=== PATIENT | female | born 1970 | race Caucasian/White ===

== ENCOUNTER 2016-04-02 13:49 | Emergency (ER) | payer MEDICAID ==
[~2016-04-02] VITALS: Ht 160 cm; Wt 55.0 kg
[~2016-04-02 13:49] MED LIST: ASPI-556 PO; CIP250 PO; TRAM50TA4 PO
[2016-04-02] MEDS ORDERED: SODIUM CHLORIDE 0.9% 1,000 ML IV ONE (15:00)
[2016-04-02 15:09] LABS: BASOPHILS # (AUTO) 0.13 K/uL (0.00-0.20); BASOPHILS % (AUTO) 1.8 % (0.0-2.0); EOSINOPHILS % (AUTO) 1.34 % (1.0-6.0); HEMATOCRIT 36.5 % (36-46); HEMOGLOBIN 12.4 g/dL (12.0-16.0); LYMPHOCYTES # (AUTO) 1.5 K/uL (1.0-4.8); LYMPHOCYTES % (AUTO) 20.9 % (22.0-44.0); MEAN CORPUSCULAR HEMOGLOBIN 30.4 pg (26.0-34.0); MEAN CORPUSCULAR HGB CONC 33.9 G/dL (31.0-37.0); MEAN CORPUSCULAR VOLUME 90 fL (80-100); MONOCYTES # (AUTO) 0.8 K/uL (0.1-1.0); MONOCYTES % (AUTO) 10.3 % (2.0-9.0); NEUTROPHILS # (AUTO) 4.8 K/uL (1.8-7.7); NEUTROPHILS % (AUTO) 65.7 % (40.0-70.0); PLATELET COUNT (AUTO) 197 K/uL (150-450); RED BLOOD CELL COUNT(AUTO) 4.07 MIL/uL (4.00-5.20); RED CELL DISTRIBUTION WIDTH 15.5 % (11.5-14.5); WHITE BLOOD COUNT (AUTO) 7.3 K/uL (4.5-11.0)
[2016-04-02 15:16] LABS: CALCIUM, TOTAL 8.8 mg/dL (8.8-10.5); CREATININE 1.37 mg/dL (0.60-1.30)
[2016-04-02 15:21] LABS: GLUCOSE,POINT OF CARE 80 MG/DL (70-110)
[2016-04-02 15:23] LABS: ALBUMIN 3.3 g/dL (3.4-5.0); BILIRUBIN,TOTAL 1.1 mg/dL (0.1-1.0); TOTAL PROTEIN, SERUM 8.7 g/dL (6.4-8.2)
[2016-04-02 20:22] LABS: APPEARANCE,URINE CLOUDY (CLEAR); GLUCOSE, URINE (UA) NEGATIVE (NEGATIVE); KETONES,URINE NEGATIVE (NEGATIVE); LEUKOCYTE ESTERASE ,URINE MODERATE (NEGATIVE); OCCULT BLOOD,URINE SMALL (NEGATIVE); PH,URINE 5.5 (5.0-8.0); PROTEIN,URINE NEGATIVE (NEGATIVE)
[2016-04-02 20:33] LABS: SQUAMOUS EPITHELIAL CELL,UR Moderate /LPF (None Seen)
[2016-04-02 20:34] LABS: URINALYSIS COMMENT Few Trichomonas seen; WBC,URINE 26-50 /HPF (0-5)
[2016-04-02 21:16] VITALS: BP 109/71
== END 2016-04-02 21:19 | disposition home or self-care (01) ==
LOC: EMS 13:51
DX: F10.229 Alcohol dependence with intoxication, unspecified (principal); M25.552 Pain in left hip; F17.210 Nicotine dependence, cigarettes, uncomplicated; Z91.013 Allergy to seafood; Z79.82 Long term (current) use of aspirin; Y90.6 Blood alcohol level of 120-199 mg/100 ml
CPT/HCPCS: 36415; 72192; 73503; 80053; 80307; 81001; 82948; 82962; 84484; 84703; 85025; 87077; 87086; 87186; 96360; 96361; 99285; G0480; J7030

== ENCOUNTER 2016-04-03 05:35 | Emergency (ER) | payer MEDICAID ==
[~2016-04-03] VITALS: Ht 167.6 cm; Wt 65.9 kg
[2016-04-03 06:16] LABS: BASOPHILS % (AUTO) 0.7 % (0.0-2.0); HEMATOCRIT 34.9 % (36-46); HEMOGLOBIN 11.8 g/dL (12.0-16.0); LYMPHOCYTES # (AUTO) 1.3 K/uL (1.0-4.8); LYMPHOCYTES % (AUTO) 27.1 % (22.0-44.0); MEAN CORPUSCULAR HEMOGLOBIN 30.9 pg (26.0-34.0); MEAN CORPUSCULAR HGB CONC 33.8 G/dL (31.0-37.0); MEAN CORPUSCULAR VOLUME 91 fL (80-100); MONOCYTES # (AUTO) 0.7 K/uL (0.1-1.0); MONOCYTES % (AUTO) 14.2 % (2.0-9.0); NEUTROPHILS # (AUTO) 2.8 K/uL (1.8-7.7); PLATELET COUNT (AUTO) 148 K/uL (150-450); RED BLOOD CELL COUNT(AUTO) 3.82 MIL/uL (4.00-5.20); RED CELL DISTRIBUTION WIDTH 15.4 % (11.5-14.5); WHITE BLOOD COUNT (AUTO) 4.9 K/uL (4.5-11.0)
[2016-04-03 06:22] LABS: ANION GAP 6 mmol/L (8-16); CALCIUM, TOTAL 8.3 mg/dL (8.8-10.5); CARBON DIOXIDE 29 mmol/L (22-29); CHLORIDE 100 mmol/L (98-107); CREATININE 0.74 mg/dL (0.60-1.30); GLOMERULAR FILTR. RATE CALC > 60 mL/min (>60); SODIUM SERUM 135 mmol/L (136-145); UREA NITROGEN, BLOOD 13 mg/dL (7-18)
[2016-04-03] MEDS ORDERED: IBUPROFEN 600 MG TABLET PO ONE (06:30)
[2016-04-03 06:53] VITALS: BP 121/73
== END 2016-04-03 07:12 | disposition home or self-care (01) ==
LOC: EMS 05:36
DX: F10.229 Alcohol dependence with intoxication, unspecified (principal); M25.552 Pain in left hip; F31.9 Bipolar disorder, unspecified; F17.210 Nicotine dependence, cigarettes, uncomplicated; Z91.013 Allergy to seafood; Y90.9 Presence of alcohol in blood, level not specified
CPT/HCPCS: 36415; 80048; 85025; 99284; 99406; G0480

== ENCOUNTER 2016-05-03 14:18 | Emergency (ER) | payer MEDICAID ==
[~2016-05-03] VITALS: Ht 167.6 cm; Wt 62.7 kg
[~2016-05-03 14:18] MED LIST changes: -CIP250 PO
[2016-05-03 16:30] LABS: BASOPHILS % (AUTO) 0.7 % (0.0-2.0); EOSINOPHILS % (AUTO) 1.3 % (1.0-6.0); HEMATOCRIT 31.4 % (36-46); HEMOGLOBIN 10.3 g/dL (12.0-16.0); LYMPHOCYTES # (AUTO) 1.4 K/uL (1.0-4.8); MEAN CORPUSCULAR HEMOGLOBIN 29.9 pg (26.0-34.0); MEAN CORPUSCULAR HGB CONC 32.7 G/dL (31.0-37.0); MEAN CORPUSCULAR VOLUME 91 fL (80-100); MONOCYTES # (AUTO) 0.6 K/uL (0.1-1.0); MONOCYTES % (AUTO) 13.6 % (2.0-9.0); NEUTROPHILS % (AUTO) 50.4 % (40.0-70.0); PLATELET COUNT (AUTO) 128 K/uL (150-450); RED BLOOD CELL COUNT(AUTO) 3.44 MIL/uL (4.00-5.20); RED CELL DISTRIBUTION WIDTH 15.9 % (11.5-14.5); WHITE BLOOD COUNT (AUTO) 4.1 K/uL (4.5-11.0)
[2016-05-03 16:40] LABS: ANION GAP 9 mmol/L (8-16); CALCIUM, TOTAL 8.4 mg/dL (8.8-10.5); CARBON DIOXIDE 25 mmol/L (22-29); CHLORIDE 108 mmol/L (98-107); CREATININE 0.76 mg/dL (0.60-1.30); GLOMERULAR FILTR. RATE CALC > 60 mL/min (>60); POTASSIUM 3.8 mmol/L (3.5-5.1); SODIUM SERUM 142 mmol/L (136-145); UREA NITROGEN, BLOOD 13 mg/dL (7-18)
[2016-05-03 16:45] LABS: ALANINE AMINOTRANSFERASE 70 U/L (12-78); ALBUMIN 2.5 g/dL (3.4-5.0); ASPARTATE AMINOTRANSFERASE 95 U/L (15-37); BILIRUBIN,TOTAL 0.3 mg/dL (0.1-1.0); TOTAL PROTEIN, SERUM 7.1 g/dL (6.4-8.2)
[2016-05-03] MEDS ORDERED: KETOROLAC TROMETHAMINE 30 MG/ML VIAL IVP ONE (17:15)
[2016-05-03] MEDS ORDERED: ACETAMINOPHEN 500 MG TABLET PO ONE (17:15)
[2016-05-03 17:56] VITALS: BP 129/80
== END 2016-05-03 18:53 | disposition home or self-care (01) ==
LOC: EMS 14:21
DX: M16.0 Bilateral primary osteoarthritis of hip (principal); F10.229 Alcohol dependence with intoxication, unspecified; I25.2 Old myocardial infarction; F17.210 Nicotine dependence, cigarettes, uncomplicated; Z91.013 Allergy to seafood; Z79.82 Long term (current) use of aspirin; Y90.0 Blood alcohol level of less than 20 mg/100 ml
CPT/HCPCS: 36415; 80053; 84703; 85025; 96374; 99284; 99406; G0480; J1885

== ENCOUNTER 2016-10-03 19:33 | Emergency (ER) | payer SELFPAY ==
[~2016-10-03] VITALS: Ht 167.6 cm; Wt 57.7 kg
[2016-10-03 22:03] VITALS: BP 100/52
== END 2016-10-03 22:14 | disposition home or self-care (01) ==
LOC: EMS 19:35
DX: F10.20 Alcohol dependence, uncomplicated (principal); F17.210 Nicotine dependence, cigarettes, uncomplicated; F31.9 Bipolar disorder, unspecified; I25.2 Old myocardial infarction; B19.10 Unspecified viral hepatitis B without hepatic coma; M25.559 Pain in unspecified hip; G89.29 Other chronic pain; Z85.3 Personal history of malignant neoplasm of breast; Z91.013 Allergy to seafood
CPT/HCPCS: 99283; 99406

== ENCOUNTER 2017-08-23 01:45 | Emergency (ER) | payer MEDICAID ==
[~2017-08-23] VITALS: Ht 157.5 cm; Wt 55.0 kg
[2017-08-23 01:55] VITALS: BP 105/64
== END 2017-08-23 04:08 | disposition home or self-care (01) ==
LOC: EDBD → EMS 01:46
DX: Z00.00 Encounter for general adult medical examination without abnormal findings (principal); J00 Acute nasopharyngitis [common cold]; I25.2 Old myocardial infarction; F17.210 Nicotine dependence, cigarettes, uncomplicated; Z91.013 Allergy to seafood; Z59.0 Homelessness
CPT/HCPCS: 99283

== ENCOUNTER 2017-08-23 04:53 | Emergency (ER) | payer MEDICAID ==
[~2017-08-23] VITALS: Ht 157.5 cm; Wt 64.0 kg
[2017-08-23] MEDS ORDERED: ASPIRIN 81 MG CHEWABLE TABLET PO ONE (06:45)
[2017-08-23] MEDS ORDERED: SODIUM CHLORIDE 0.9% 1,000 ML IV ONE (06:45)
[2017-08-23 08:53] LABS: BASOPHILS % (AUTO) 0.5 % (0.0-2.0); EOSINOPHILS % (AUTO) 0.5 % (1.0-6.0); HEMATOCRIT 38.1 % (36-46); HEMOGLOBIN 13.3 g/dL (12.0-16.0); LYMPHOCYTES # (AUTO) 1.3 K/uL (1.0-4.8); LYMPHOCYTES % (AUTO) 28.4 % (22.0-44.0); MEAN CORPUSCULAR HEMOGLOBIN 31.9 pg (26.0-34.0); MEAN CORPUSCULAR VOLUME 91 fL (80-100); MONOCYTES # (AUTO) 0.6 K/uL (0.1-1.0); MONOCYTES % (AUTO) 13.5 % (2.0-9.0); NEUTROPHILS # (AUTO) 2.6 K/uL (1.8-7.7); NEUTROPHILS % (AUTO) 57.1 % (40.0-70.0); PLATELET COUNT (AUTO) 133 K/uL (150-450); RED BLOOD CELL COUNT(AUTO) 4.18 MIL/uL (4.00-5.20); RED CELL DISTRIBUTION WIDTH 14.9 % (11.5-14.5)
[2017-08-23 09:05] LABS: ANION GAP 12 mmol/L (8-16); CALCIUM, TOTAL 8.6 mg/dL (8.8-10.5); CARBON DIOXIDE 19 mmol/L (22-29); CHLORIDE 101 mmol/L (98-107); CREATININE 0.71 mg/dL (0.60-1.30); GLOMERULAR FILTR. RATE CALC > 60 mL/min (>60); GLUCOSE,RANDOM 81 mg/dL (70-110); POTASSIUM 3.7 mmol/L (3.5-5.1); SODIUM SERUM 132 mmol/L (136-145); UREA NITROGEN, BLOOD 8 mg/dL (7-18)
[2017-08-23 09:21] LABS: B-TYPE NATRIURETIC PEPTIDE 136 pg/mL (0-100)
[2017-08-23 09:34] LABS: ALANINE AMINOTRANSFERASE 101 U/L (12-78); ALBUMIN 3.3 g/dL (3.4-5.0); ALKALINE PHOSPHATASE 152 U/L (46-116); ASPARTATE AMINOTRANSFERASE 141 U/L (15-37); BILIRUBIN,TOTAL 1.9 mg/dL (0.1-1.0); CREATINE KINASE MB 3.7 ng/mL (0-5); CREATINE KINASE, TOTAL 241 U/L (26-192); TOTAL PROTEIN, SERUM 9.1 g/dL (6.4-8.2)
[2017-08-23 10:30] LABS: AMPHET/METH SCREEN,URINE POSITIVE (NEGATIVE); BARBITURATE SCREEN, URINE NEGATIVE (NEGATIVE); BENZODIAZEPINES SCREEN,URINE NEGATIVE (NEGATIVE); CANNABINOID SCREEN,URINE NEGATIVE (NEGATIVE); COCAINE SCREEN,URINE NEGATIVE (NEGATIVE); METHADONE SCREEN, URINE NEGATIVE (NEGATIVE); OPIATE SCREEN,URINE NEGATIVE (NEGATIVE)
[2017-08-23 10:31] LABS: PHENCYCLIDINE SCREEN,URINE NEGATIVE (NEGATIVE)
[2017-08-23 10:36] VITALS: BP 155/85
[2017-08-23 10:38] LABS: APPEARANCE,URINE CLOUDY (CLEAR); BILIRUBIN,URINE NEGATIVE (NEGATIVE); GLUCOSE, URINE (UA) NEGATIVE (NEGATIVE); KETONES,URINE 15 mg/dL (NEGATIVE); LEUKOCYTE ESTERASE ,URINE SMALL (NEGATIVE); NITRATE,URINE NEGATIVE (NEGATIVE); OCCULT BLOOD,URINE NEGATIVE (NEGATIVE); PROTEIN,URINE NEGATIVE (NEGATIVE)
[2017-08-23 10:59] LABS: RBC,URINE 0-2 /HPF (0-2)
[2017-08-23 11:01] LABS: BACTERIA,URINE Few /HPF (None Seen); SQUAMOUS EPITHELIAL CELL,UR Moderate /LPF (None Seen)
== END 2017-08-23 11:25 | disposition left against medical advice (07) ==
LOC: EDBD → EMS 04:54
DX: R07.9 Chest pain, unspecified (principal); I25.2 Old myocardial infarction; F17.210 Nicotine dependence, cigarettes, uncomplicated; Z59.0 Homelessness; Z91.19 Patient's noncompliance with other medical treatment and regimen; Z91.013 Allergy to seafood
CPT/HCPCS: 36415; 71045; 80053; 80307; 81001; 81025; 82550; 82553; 83880; 84484; 85025; 87086; 93005; 96360; 99285; G0480; J7030

== ENCOUNTER 2018-04-09 19:16 | Emergency (ER) | payer SELFPAY ==
[~2018-04-09] VITALS: Ht 167.6 cm; Wt 61.4 kg
[~2018-04-09 19:16] MED LIST changes: -ASPI-556 PO; +IBUP-2071 PO; -TRAM50TA4 PO
[2018-04-09 22:15] VITALS: BP 112/55
[2018-04-09] MEDS ORDERED: KETOROLAC TROMETHAMINE 30 MG/ML VIAL IM ONE (22:30)
== END 2018-04-09 22:30 | disposition home or self-care (01) ==
LOC: EMS 19:16
DX: M54.5 Low back pain (principal); G89.29 Other chronic pain; F10.129 Alcohol abuse with intoxication, unspecified; M79.605 Pain in left leg; F15.90 Other stimulant use, unspecified, uncomplicated; Y90.5 Blood alcohol level of 100-119 mg/100 ml; Z91.013 Allergy to seafood; Z88.8 Allergy status to other drugs, medicaments and biological substances; Z96.649 Presence of unspecified artificial hip joint
CPT/HCPCS: 36415; 84702; 96372; 99283; G0480; J1885

== ENCOUNTER 2019-10-03 05:08 | Emergency (ER) | payer MEDICAID ==
[~2019-10-03] VITALS: Ht 154.9 cm; Wt 67.3 kg
[2019-10-03] MEDS ORDERED: LORazepam 2 MG/ML VIAL IVP ONE ×2 (05:45)
[2019-10-03 05:50] LABS: GLUCOSE,POINT OF CARE 62 MG/DL (70-110)
[2019-10-03 05:54] LABS: BASOPHILS % (AUTO) 0.8 % (0.0-2.0); EOSINOPHILS % (AUTO) 0.4 % (1.0-6.0); HEMATOCRIT 35.9 % (36-46); HEMOGLOBIN 12.4 g/dL (12.0-16.0); LYMPHOCYTES # (AUTO) 0.9 K/uL (1.0-4.8); LYMPHOCYTES % (AUTO) 19.5 % (22.0-44.0); MEAN CORPUSCULAR HGB CONC 34.7 G/dL (31.0-37.0); MEAN CORPUSCULAR VOLUME 89 fL (80-100); MONOCYTES # (AUTO) 0.7 K/uL (0.1-1.0); MONOCYTES % (AUTO) 14.5 % (2.0-9.0); NEUTROPHILS # (AUTO) 3.1 K/uL (1.8-7.7); NEUTROPHILS % (AUTO) 64.8 % (40.0-70.0); PLATELET COUNT (AUTO) 132 K/uL (150-450); RED BLOOD CELL COUNT(AUTO) 4.02 MIL/uL (4.00-5.20); RED CELL DISTRIBUTION WIDTH 19.3 % (11.5-14.5)
[2019-10-03 06:00] LABS: ANION GAP 15 mmol/L (8-16); CALCIUM, TOTAL 9.5 mg/dL (8.8-10.5); CARBON DIOXIDE 22 mmol/L (22-29); CHLORIDE 96 mmol/L (98-107); GLOMERULAR FILTR. RATE CALC > 60 mL/min (>60); GLUCOSE,RANDOM 72 mg/dL (70-110); POTASSIUM 4.6 mmol/L (3.5-5.1); SODIUM SERUM 133 mmol/L (136-145); UREA NITROGEN, BLOOD 7 mg/dL (7-18)
[2019-10-03] MEDS ORDERED: SODIUM CHLORIDE 0.9% 1,000 ML IV ONE (06:00)
[2019-10-03 06:10] LABS: INR 1.1 (0.9-1.1); PROTHROMBIN TIME 11.8 SEC (9.4-11.6)
[2019-10-03 06:22] LABS: SALICYLATE < 2.8 mg/dL (2.8-20.0)
[2019-10-03 06:26] LABS: ALANINE AMINOTRANSFERASE 138 U/L (12-78); ALBUMIN 3.4 g/dL (3.4-5.0); ALKALINE PHOSPHATASE 178 U/L (46-116); AMMONIA 15 umol/L (11-32); ASPARTATE AMINOTRANSFERASE 264 U/L (15-37); BILIRUBIN,TOTAL 2.7 mg/dL (0.1-1.0); CREATINE KINASE, TOTAL ONLY 431 U/L (26-192); TOTAL PROTEIN, SERUM 9.8 g/dL (6.4-8.2)
[2019-10-03 06:46] LABS: ACETAMINOPHEN < 2 mcg/mL (10-30); TROPONIN I < 0.02 ng/mL (0.00-0.05)
[2019-10-03 08:18] LABS: AMPHET/METH SCREEN,URINE POSITIVE (NEGATIVE); BARBITURATE SCREEN, URINE NEGATIVE (NEGATIVE); BENZODIAZEPINES SCREEN,URINE NEGATIVE (NEGATIVE); CANNABINOID SCREEN,URINE POSITIVE (NEGATIVE); COCAINE SCREEN,URINE NEGATIVE (NEGATIVE); METHADONE SCREEN, URINE NEGATIVE (NEGATIVE); OPIATE SCREEN,URINE NEGATIVE (NEGATIVE)
[2019-10-03 08:26] LABS: GLUCOSE, URINE (UA) NEGATIVE (NEGATIVE); KETONES,URINE TRACE mg/dL (NEGATIVE); LEUKOCYTE ESTERASE ,URINE SMALL (NEGATIVE); NITRATE,URINE POSITIVE (NEGATIVE); OCCULT BLOOD,URINE NEGATIVE (NEGATIVE); PROTEIN,URINE NEGATIVE (NEGATIVE)
[2019-10-03 08:30] LABS: PHENCYCLIDINE SCREEN,URINE NEGATIVE (NEGATIVE)
[2019-10-03 08:31] LABS: APPEARANCE,URINE CLEAR (CLEAR); BILIRUBIN,URINE PRELIM. POSITIVE (NEGATIVE)
[2019-10-03 08:54] LABS: GLUCOSE,POINT OF CARE 86 MG/DL (70-110)
[2019-10-03 08:54] LABS: BACTERIA,URINE None Seen /HPF (None Seen); RBC,URINE None Seen /HPF (0-2); SQUAMOUS EPITHELIAL CELL,UR Moderate /LPF (None Seen)
[2019-10-03 08:54] LABS: GLUCOSE,POINT OF CARE 96 MG/DL (70-110)
[2019-10-03 09:20] VITALS: BP 120/67
== END 2019-10-03 09:45 | disposition home or self-care (01) ==
LOC: EMS 05:08
DX: K76.9 Liver disease, unspecified (principal); F10.129 Alcohol abuse with intoxication, unspecified; F17.210 Nicotine dependence, cigarettes, uncomplicated; M25.472 Effusion, left ankle; R41.82 Altered mental status, unspecified; G89.29 Other chronic pain; Z91.013 Allergy to seafood; Y90.4 Blood alcohol level of 80-99 mg/100 ml
CPT/HCPCS: 36415; 70450; 71045; 73610; 80053; 80307; 81001; 82140; 82550; 82948; 82962; 83735; 84484; 84703; 85025; 85610; 93005; 96361; 96374; 99285; 99406; G0480; G0481; J2060

== ENCOUNTER 2019-10-05 08:40 | Emergency (ER) | payer SELFPAY ==
[~2019-10-05] VITALS: Ht 167.6 cm; Wt 54.5 kg
[2019-10-05] MEDS ORDERED: ZINC OXIDE 40%/COD LIVER OIL 57 GM PASTE TP ONE (11:00)
[2019-10-05] MEDS ORDERED: ACETAMINOPHEN 500 MG TABLET PO ONE (11:00)
[2019-10-05] MEDS ORDERED: CEPHALEXIN MONOHYDRATE 500 MG CAPSULE PO ONE (11:00)
[2019-10-05 12:45] VITALS: BP 120/84
== END 2019-10-05 12:49 | disposition home or self-care (01) ==
LOC: EMS 09:02
DX: L89.321 Pressure ulcer of left buttock, stage 1 (principal); L25.9 Unspecified contact dermatitis, unspecified cause; F17.210 Nicotine dependence, cigarettes, uncomplicated; F31.9 Bipolar disorder, unspecified; Z91.013 Allergy to seafood
CPT/HCPCS: 99406; Z7502; Z7610

== ENCOUNTER 2019-10-16 11:30 | Emergency (ER) | payer SELFPAY ==
[~2019-10-16] VITALS: Ht 167.6 cm; Wt 59.1 kg
[~2019-10-16 11:30] MED LIST changes: -IBUP-2071 PO; +RISP1TAB27 PO
[2019-10-16] MEDS ORDERED: CefTRIAXone SODIUM 1 GM/VIAL IM ONE (12:45)
[2019-10-16] MEDS ORDERED: LIDOCAINE/PF 1% 2 ML VIAL IM ONE (12:45)
[2019-10-16] MEDS ORDERED: ACETAMINOPHEN 500 MG TABLET PO ONE (12:45)
[2019-10-16 15:07] VITALS: BP 116/67
== END 2019-10-16 15:40 | disposition home or self-care (01) ==
LOC: EMS 11:32
DX: L89.322 Pressure ulcer of left buttock, stage 2 (principal); F31.9 Bipolar disorder, unspecified; F17.210 Nicotine dependence, cigarettes, uncomplicated; Z91.013 Allergy to seafood
CPT/HCPCS: 96372; 99283; 99406; J0696; J3490

== ENCOUNTER 2019-10-20 00:30 | Emergency (ER) | payer MEDICAID ==
[~2019-10-20] VITALS: Ht 162.6 cm; Wt 54.5 kg
[2019-10-20] MEDS ORDERED: BACITRACIN 0.9 GM PACKET OINTMENT TP ONE (01:15)
[2019-10-20] MEDS ORDERED: IBUPROFEN 800 MG TABLET PO ONE (01:30)
[2019-10-20 02:07] LABS: BASOPHILS % (AUTO) 1.1 % (0.0-2.0); EOSINOPHILS % (AUTO) 2.3 % (1.0-6.0); HEMATOCRIT 32.4 % (36-46); HEMOGLOBIN 10.7 g/dL (12.0-16.0); LYMPHOCYTES # (AUTO) 1.2 K/uL (1.0-4.8); MEAN CORPUSCULAR HEMOGLOBIN 29.6 pg (26.0-34.0); MEAN CORPUSCULAR HGB CONC 32.9 G/dL (31.0-37.0); MEAN CORPUSCULAR VOLUME 90 fL (80-100); MONOCYTES # (AUTO) 0.5 K/uL (0.1-1.0); MONOCYTES % (AUTO) 14.6 % (2.0-9.0); NEUTROPHILS # (AUTO) 1.7 K/uL (1.8-7.7); PLATELET COUNT (AUTO) 115 K/uL (150-450); RED CELL DISTRIBUTION WIDTH 20.4 % (11.5-14.5)
[2019-10-20 02:16] LABS: ANION GAP 7 mmol/L (8-16); CALCIUM, TOTAL 8.7 mg/dL (8.8-10.5); CARBON DIOXIDE 25 mmol/L (22-29); CHLORIDE 102 mmol/L (98-107); CREATININE 0.76 mg/dL (0.60-1.30); GLOMERULAR FILTR. RATE CALC > 60 mL/min (>60); GLUCOSE,RANDOM 113 mg/dL (70-110); SODIUM SERUM 134 mmol/L (136-145); UREA NITROGEN, BLOOD 7 mg/dL (7-18)
[2019-10-20 02:23] LABS: ALANINE AMINOTRANSFERASE 96 U/L (12-78); ALBUMIN 2.5 g/dL (3.4-5.0); ALKALINE PHOSPHATASE 143 U/L (46-116); ASPARTATE AMINOTRANSFERASE 138 U/L (15-37); TOTAL PROTEIN, SERUM 7.8 g/dL (6.4-8.2)
[2019-10-20 03:31] VITALS: BP 108/69
== END 2019-10-20 05:00 | disposition home or self-care (01) ==
LOC: EMS 00:30
DX: L98.491 Non-pressure chronic ulcer of skin of other sites limited to breakdown of skin (principal); R74.0 Nonspecific elevation of levels of transaminase and lactic acid dehydrogenase [LDH]; L98.9 Disorder of the skin and subcutaneous tissue, unspecified; F31.9 Bipolar disorder, unspecified; F17.210 Nicotine dependence, cigarettes, uncomplicated; Z59.0 Homelessness; Z91.013 Allergy to seafood

== ENCOUNTER 2020-07-08 08:14 | Emergency (ER) | payer MEDICAID ==
[~2020-07-08] VITALS: Ht 170.2 cm; Wt 63.3 kg
[~2020-07-08 08:14] MED LIST changes: -RISP1TAB27 PO; +RISP1TAB48 PO
[2020-07-08 12:34] VITALS: BP 151/81
== END 2020-07-08 13:20 | disposition home or self-care (01) ==
LOC: EMS 08:18
DX: S00.212A Abrasion of left eyelid and periocular area, initial encounter (principal); I45.81 Long QT syndrome; F31.9 Bipolar disorder, unspecified; F17.210 Nicotine dependence, cigarettes, uncomplicated; Z59.0 Homelessness; Z91.013 Allergy to seafood; W19.XXXA Unspecified fall, initial encounter; Y93.89 Activity, other specified; Y92.89 Other specified places as the place of occurrence of the external cause; Y99.8 Other external cause status
CPT/HCPCS: 70450; 72125; 93005; 99285

== ENCOUNTER 2020-09-09 11:21 | Emergency (ER) | payer MEDICAID ==
[~2020-09-09] VITALS: Ht 167.6 cm; Wt 70.5 kg
[2020-09-09] MEDS ORDERED: KETOCONAZOLE 2% 15 GM CREAM TP ONE (13:30)
[2020-09-09] MEDS ORDERED: DOXYCYCLINE HYCLATE 100 MG TABLET PO ONE (13:30)
[2020-09-09 14:08] VITALS: BP 141/93
== END 2020-09-09 14:33 | disposition home or self-care (01) ==
LOC: EMS 11:24
DX: S01.00XA Unspecified open wound of scalp, initial encounter (principal); B35.0 Tinea barbae and tinea capitis; F31.9 Bipolar disorder, unspecified; F17.210 Nicotine dependence, cigarettes, uncomplicated; Z59.0 Homelessness; Z91.013 Allergy to seafood; W22.8XXA Striking against or struck by other objects, initial encounter; Y93.89 Activity, other specified; Y92.89 Other specified places as the place of occurrence of the external cause; Y99.8 Other external cause status
CPT/HCPCS: 70450; 99284

== ENCOUNTER 2020-12-13 14:19 | Emergency (ER) | payer MEDICAID ==
[~2020-12-13] VITALS: Ht 167.6 cm; Wt 70.5 kg
[2020-12-13 14:36] VITALS: BP 138/70
[2020-12-13] MEDS ORDERED: HYDROCORTISONE 1% 30 GM CREAM TP ONE (15:00)
[2020-12-13] MEDS ORDERED: ACETAMINOPHEN 500 MG TABLET PO ONE (15:00)
== END 2020-12-13 15:50 | disposition home or self-care (01) ==
LOC: EMS 14:19
DX: G89.29 Other chronic pain (principal); M54.50 Low back pain, unspecified; R41.82 Altered mental status, unspecified; F31.9 Bipolar disorder, unspecified; F17.210 Nicotine dependence, cigarettes, uncomplicated; Z59.00 Homelessness unspecified; Z91.013 Allergy to seafood
CPT/HCPCS: 99283

== ENCOUNTER 2021-02-21 04:29 | Emergency (ER) | payer MEDICAID ==
[~2021-02-21] VITALS: Ht 170.2 cm; Wt 77.3 kg
[2021-02-21 07:28] LABS: BASOPHILS % (AUTO) 0.7 % (0.0-2.0); EOSINOPHILS % (AUTO) 1.5 % (1.0-6.0); HEMATOCRIT 31.1 % (36-46); HEMOGLOBIN 10.5 g/dL (12.0-16.0); LYMPHOCYTES % (AUTO) 23.8 % (22.0-44.0); MEAN CORPUSCULAR HEMOGLOBIN 29.6 pg (26.0-34.0); MEAN CORPUSCULAR HGB CONC 33.7 G/dL (31.0-37.0); MEAN CORPUSCULAR VOLUME 88 fL (80-100); MONOCYTES # (AUTO) 0.7 K/uL (0.1-1.0); NEUTROPHILS # (AUTO) 2.5 K/uL (1.8-7.7); PLATELET COUNT (AUTO) 113 K/uL (150-450); RED BLOOD CELL COUNT(AUTO) 3.55 MIL/uL (4.00-5.20); RED CELL DISTRIBUTION WIDTH 19.3 % (11.5-14.5)
[2021-02-21 07:34] LABS: ANION GAP 4 mmol/L (8-16); CALCIUM, TOTAL 8.7 mg/dL (8.8-10.5); CARBON DIOXIDE 28 mmol/L (22-29); CHLORIDE 101 mmol/L (98-107); GLOMERULAR FILTR. RATE CALC > 60 mL/min (>60); GLUCOSE,RANDOM 101 mg/dL (70-110); POTASSIUM 4.1 mmol/L (3.5-5.1); SODIUM SERUM 133 mmol/L (136-145); UREA NITROGEN, BLOOD 8 mg/dL (7-18)
[2021-02-21 07:47] LABS: ALANINE AMINOTRANSFERASE 96 U/L (12-78); ALBUMIN 2.7 g/dL (3.4-5.0); ALKALINE PHOSPHATASE 147 U/L (46-116); ASPARTATE AMINOTRANSFERASE 189 U/L (15-37); BILIRUBIN,TOTAL 3.4 mg/dL (0.1-1.0); HCG,QUANTITATIVE < 1 mIU/mL (0-6); TOTAL PROTEIN, SERUM 8.7 g/dL (6.4-8.2)
[2021-02-21 08:12] LABS: COVID AG,FIA SOURCE NASOPHARYNGEAL
[2021-02-21 08:53] LABS: AMPHET/METH SCREEN,URINE POSITIVE (NEGATIVE); BARBITURATE SCREEN, URINE NEGATIVE (NEGATIVE); BENZODIAZEPINES SCREEN,URINE NEGATIVE (NEGATIVE); CANNABINOID SCREEN,URINE NEGATIVE (NEGATIVE); COCAINE SCREEN,URINE NEGATIVE (NEGATIVE); METHADONE SCREEN, URINE NEGATIVE (NEGATIVE); OPIATE SCREEN,URINE NEGATIVE (NEGATIVE)
[2021-02-21 08:55] LABS: PHENCYCLIDINE SCREEN,URINE NEGATIVE (NEGATIVE)
[2021-02-21 10:03] VITALS: BP 132/69
== END 2021-02-21 10:37 | disposition home or self-care (01) ==
LOC: EMS 04:32
DX: F31.9 Bipolar disorder, unspecified (principal); F15.10 Other stimulant abuse, uncomplicated; K74.60 Unspecified cirrhosis of liver; F17.210 Nicotine dependence, cigarettes, uncomplicated; Z91.013 Allergy to seafood; Z20.822 Contact with and (suspected) exposure to COVID-19
CPT/HCPCS: 36415; 76705; 80053; 80307; 82140; 84702; 85025; 87426; 99284; G0480

== ENCOUNTER 2021-03-02 16:25 | Emergency (ER) | payer MEDICAID ==
[~2021-03-02] VITALS: Ht 162.6 cm; Wt 61.4 kg
[2021-03-02 17:09] VITALS: BP 161/89
[2021-03-02] MEDS ORDERED: LORazepam 2 MG TABLET PO ONE (17:45)
[2021-03-02] MEDS: LORazepam 2 MG/ML VIAL IM ONE (17:54)
== END 2021-03-02 21:00 | disposition home or self-care (01) ==
LOC: EMS 16:47
DX: S09.90XA Unspecified injury of head, initial encounter (principal); Y08.89XA Assault by other specified means, initial encounter; Y93.89 Activity, other specified; Y92.89 Other specified places as the place of occurrence of the external cause; Y99.8 Other external cause status; F31.9 Bipolar disorder, unspecified; F17.210 Nicotine dependence, cigarettes, uncomplicated; Z59.00 Homelessness unspecified
CPT/HCPCS: 70450; 96372; 99284; J2060

== ENCOUNTER 2021-07-12 02:27 | Emergency (ER) | payer MEDICAID ==
[~2021-07-12] VITALS: Ht 162.6 cm; Wt 61.4 kg
[2021-07-12 03:30] VITALS: BP 138/79
== END 2021-07-12 05:24 | disposition home or self-care (01) ==
LOC: EMS 02:31
DX: G89.29 Other chronic pain (principal); M54.50 Low back pain, unspecified; F31.9 Bipolar disorder, unspecified; M79.604 Pain in right leg; F17.210 Nicotine dependence, cigarettes, uncomplicated; Z59.00 Homelessness unspecified; Z91.013 Allergy to seafood
CPT/HCPCS: 99283; Z7502

== ENCOUNTER 2021-11-13 08:27 | Emergency (ER) | payer MEDICAID ==
[~2021-11-13] VITALS: Ht 167.6 cm; Wt 55.5 kg
[2021-11-13 08:37] VITALS: BP 107/84
[2021-11-13] MEDS ORDERED: BACITRACIN 28 GM OINTMENT TP ONE (08:45)
[2021-11-13] MEDS ORDERED: PERMETHRIN 1% 60 ML LOTION TP ONE (08:45)
[2021-11-13] MEDS ORDERED: DIPH50CA37 PO (08:55)
[2021-11-13] MEDS ORDERED: GRIS500T6 PO (08:55)
[2021-11-13] MEDS ORDERED: IVERMECTIN 3 MG TABLET PO ONE (09:00)
[2021-11-13] MEDS ORDERED: TERB250T90 PO (09:02)
== END 2021-11-13 09:32 | disposition home or self-care (01) ==
LOC: EMS 08:29
DX: B35.0 Tinea barbae and tinea capitis (principal); Z59.00 Homelessness unspecified; B85.2 Pediculosis, unspecified; F31.9 Bipolar disorder, unspecified; F15.10 Other stimulant abuse, uncomplicated; F17.210 Nicotine dependence, cigarettes, uncomplicated
CPT/HCPCS: 99284; Z7502; Z7610

== ENCOUNTER 2021-11-15 00:57 | Emergency (ER) | payer MEDICAID ==
[~2021-11-15] VITALS: Ht 167.6 cm; Wt 66.0 kg
[~2021-11-15 00:57] MED LIST changes: +DIPH50CA37 PO; +TERB250T90 PO
[2021-11-15] MEDS ORDERED: SODIUM CHLORIDE 0.9% 1,000 ML IV ONE (01:30)
[2021-11-15 01:53] LABS: ANION GAP 8 mmol/L (8-16); BASOPHILS % (AUTO) 0.7 % (0.0-2.0); CALCIUM, TOTAL 7.9 mg/dL (8.8-10.5); CARBON DIOXIDE 20 mmol/L (22-29); CHLORIDE 101 mmol/L (98-107); CREATININE 0.64 mg/dL (0.60-1.30); EOSINOPHILS % (AUTO) 1.4 % (1.0-6.0); GLUCOSE,RANDOM 95 mg/dL (70-110); HEMATOCRIT 30.2 % (36-46); HEMOGLOBIN 9.8 g/dL (12.0-16.0); LYMPHOCYTES # (AUTO) 1.5 K/uL (1.0-4.8); MEAN CORPUSCULAR HEMOGLOBIN 27.7 pg (26.0-34.0); MEAN CORPUSCULAR HGB CONC 32.5 G/dL (31.0-37.0); MEAN CORPUSCULAR VOLUME 85 fL (80-100); MONOCYTES # (AUTO) 0.8 K/uL (0.1-1.0); MONOCYTES % (AUTO) 15.9 % (2.0-9.0); NEUTROPHILS # (AUTO) 2.8 K/uL (1.8-7.7); POTASSIUM 3.1 mmol/L (3.5-5.1); RED BLOOD CELL COUNT(AUTO) 3.54 MIL/uL (4.00-5.20); RED CELL DISTRIBUTION WIDTH 22.5 % (11.5-14.5); SODIUM SERUM 129 mmol/L (136-145); UREA NITROGEN, BLOOD 3 mg/dL (7-18)
[2021-11-15 01:54] LABS: GLOMERULAR FILTR. RATE CALC > 60 mL/min (>60)
[2021-11-15 01:59] LABS: ALANINE AMINOTRANSFERASE 40 U/L (12-78); ALBUMIN 2.4 g/dL (3.4-5.0); ALKALINE PHOSPHATASE 119 U/L (46-116); ASPARTATE AMINOTRANSFERASE 88 U/L (15-37); BILIRUBIN,TOTAL 2.9 mg/dL (0.1-1.0); TOTAL PROTEIN, SERUM 8.1 g/dL (6.4-8.2)
[2021-11-15 02:06] LABS: PLATELET COUNT (AUTO) 99 K/uL (150-450); PLATELET MORPHOLOGY COMMENT LARGE PLTS PRESENT
[2021-11-15 05:55] VITALS: BP 121/78
== END 2021-11-15 06:20 | disposition home or self-care (01) ==
LOC: EMS 00:58
DX: S00.03XA Contusion of scalp, initial encounter (principal); F31.9 Bipolar disorder, unspecified; F10.20 Alcohol dependence, uncomplicated; F17.210 Nicotine dependence, cigarettes, uncomplicated; F15.90 Other stimulant use, unspecified, uncomplicated; Z91.013 Allergy to seafood; Y08.89XA Assault by other specified means, initial encounter; Y93.89 Activity, other specified; Y92.89 Other specified places as the place of occurrence of the external cause; Y99.8 Other external cause status
CPT/HCPCS: 99284; 70450; 80053; 85025; 36415; G0480

== ENCOUNTER 2021-11-19 08:03 | Emergency (ER) | payer MEDICAID ==
[~2021-11-19] VITALS: Ht 167.6 cm; Wt 56.8 kg
[2021-11-19] MEDS ORDERED: SODIUM CHLORIDE 0.9% 100 ML ONE (10:56)
[2021-11-19] MEDS ORDERED: IOHEXOL 350 MG/ML 100 ML VIAL ONE (10:56)
[2021-11-19 11:24] LABS: BASOPHILS % (AUTO) 0.9 % (0.0-2.0); EOSINOPHILS % (AUTO) 1.5 % (1.0-6.0); HEMATOCRIT 31.8 % (36-46); HEMOGLOBIN 10.1 g/dL (12.0-16.0); LYMPHOCYTES # (AUTO) 0.9 K/uL (1.0-4.8); LYMPHOCYTES % (AUTO) 24.4 % (22.0-44.0); MEAN CORPUSCULAR HEMOGLOBIN 27.8 pg (26.0-34.0); MEAN CORPUSCULAR HGB CONC 31.8 G/dL (31.0-37.0); MEAN CORPUSCULAR VOLUME 87 fL (80-100); MONOCYTES # (AUTO) 0.4 K/uL (0.1-1.0); MONOCYTES % (AUTO) 10.7 % (2.0-9.0); NEUTROPHILS # (AUTO) 2.3 K/uL (1.8-7.7); NEUTROPHILS % (AUTO) 62.5 % (40.0-70.0); RED BLOOD CELL COUNT(AUTO) 3.65 MIL/uL (4.00-5.20); RED CELL DISTRIBUTION WIDTH 22.3 % (11.5-14.5)
[2021-11-19 11:31] LABS: LACTIC ACID 1.1 mmol/L (0.4-2.0)
[2021-11-19 11:36] LABS: ANION GAP 6 mmol/L (8-16); CALCIUM, TOTAL 7.9 mg/dL (8.8-10.5); CARBON DIOXIDE 26 mmol/L (22-29); CHLORIDE 104 mmol/L (98-107); CREATININE 0.64 mg/dL (0.60-1.30); GLUCOSE,RANDOM 79 mg/dL (70-110); SODIUM SERUM 136 mmol/L (136-145); UREA NITROGEN, BLOOD 5 mg/dL (7-18)
[2021-11-19 11:37] LABS: GLOMERULAR FILTR. RATE CALC > 60 mL/min (>60)
[2021-11-19 11:39] LABS: ALANINE AMINOTRANSFERASE 32 U/L (12-78); ALBUMIN 2.3 g/dL (3.4-5.0); ALKALINE PHOSPHATASE 125 U/L (46-116); ASPARTATE AMINOTRANSFERASE 73 U/L (15-37); BILIRUBIN,TOTAL 3.1 mg/dL (0.1-1.0); TOTAL PROTEIN, SERUM 8.1 g/dL (6.4-8.2)
[2021-11-19 12:02] LABS: PLATELET COUNT (AUTO) 78 K/uL (150-450)
[2021-11-19 12:04] LABS: PLATELET MORPHOLOGY COMMENT LARGE PLTS PRESENT
[2021-11-19 12:08] LABS: HCG,QUANTITATIVE < 1 mIU/mL (0-6)
[2021-11-19] MEDS ORDERED: SULFAMETHOX/TRIMETH DS 800-160 MG/TABLET PO ONE (12:30)
[2021-11-19] MEDS ORDERED: CefTRIAXone 1 GM/DEXTROSE 50 ML IV ONE (12:30)
[2021-11-19] MEDS ORDERED: IBUPROFEN 400 MG TABLET PO ONE (13:00)
[2021-11-19] MEDS ORDERED: ACETAMINOPHEN 325 MG TABLET PO ONE (13:00)
[2021-11-19] MEDS ORDERED: CEPH-558 PO (13:02)
[2021-11-19] MEDS ORDERED: SULF-261 PO (13:02)
[2021-11-19 13:23] VITALS: BP 149/90
== END 2021-11-19 14:03 | disposition home or self-care (01) ==
LOC: EMS 08:05
DX: L02.11 Cutaneous abscess of neck (principal); L03.221 Cellulitis of neck; F10.20 Alcohol dependence, uncomplicated; F31.9 Bipolar disorder, unspecified; R26.89 Other abnormalities of gait and mobility; F17.210 Nicotine dependence, cigarettes, uncomplicated; F15.90 Other stimulant use, unspecified, uncomplicated; Z87.39 Personal history of other diseases of the musculoskeletal system and connective tissue; Z59.00 Homelessness unspecified; Z91.013 Allergy to seafood; Y90.0 Blood alcohol level of less than 20 mg/100 ml
CPT/HCPCS: 99285; 70450; 96365; 10060; 80053; 83605; 84702; 85025; 87040; 36415; 70491; G0480; J0696; Q9967; J7050

== ENCOUNTER 2021-12-24 08:14 | Emergency (ER) | payer MEDICAID ==
[~2021-12-24] VITALS: Ht 170.2 cm; Wt 56.8 kg
[~2021-12-24 08:14] MED LIST changes: +CEPH-558 PO; +SULF-261 PO
[2021-12-24] MEDS ORDERED: LORazepam 2 MG/ML VIAL IVP ONE (08:15)
[2021-12-24] MEDS ORDERED: SODIUM CHLORIDE 0.9% 1,000 ML IV ONE ×3 (08:30→13:45)
[2021-12-24 08:48] LABS: BASOPHILS % (AUTO) 0.4 % (0.0-2.0); EOSINOPHILS % (AUTO) 0.8 % (1.0-6.0); LYMPHOCYTES # (AUTO) 0.7 K/uL (1.0-4.8); LYMPHOCYTES % (AUTO) 15.9 % (22.0-44.0); MEAN CORPUSCULAR VOLUME 89 fL (80-100); MONOCYTES # (AUTO) 0.5 K/uL (0.1-1.0); MONOCYTES % (AUTO) 12.7 % (2.0-9.0); NEUTROPHILS # (AUTO) 2.9 K/uL (1.8-7.7); NEUTROPHILS % (AUTO) 70.2 % (40.0-70.0); PLATELET COUNT (AUTO) 118 K/uL (150-450)
[2021-12-24 08:49] LABS: ANION GAP 12 mmol/L (8-16); CALCIUM, TOTAL 8.8 mg/dL (8.8-10.5); CARBON DIOXIDE 21 mmol/L (22-29); CHLORIDE 101 mmol/L (98-107); CREATININE 0.88 mg/dL (0.60-1.30); GLUCOSE,RANDOM 85 mg/dL (70-110); HEMATOCRIT 29.5 % (36-46); HEMOGLOBIN 9.5 g/dL (12.0-16.0); MEAN CORPUSCULAR HEMOGLOBIN 28.6 pg (26.0-34.0); MEAN CORPUSCULAR HGB CONC 32.1 G/dL (31.0-37.0); POTASSIUM 3.1 mmol/L (3.5-5.1); RED BLOOD CELL COUNT(AUTO) 3.31 MIL/uL (4.00-5.20); SODIUM SERUM 134 mmol/L (136-145); UREA NITROGEN, BLOOD 5 mg/dL (7-18)
[2021-12-24 08:51] LABS: GLOMERULAR FILTR. RATE CALC > 60 mL/min (>60)
[2021-12-24 08:55] LABS: ALANINE AMINOTRANSFERASE 41 U/L (12-78); ALBUMIN 2.5 g/dL (3.4-5.0); ALKALINE PHOSPHATASE 126 U/L (46-116); ASPARTATE AMINOTRANSFERASE 88 U/L (15-37); BILIRUBIN,TOTAL 4.9 mg/dL (0.1-1.0); TOTAL PROTEIN, SERUM 8.7 g/dL (6.4-8.2)
[2021-12-24] MEDS ORDERED: SODIUM CHLORIDE 0.9% 500 ML IV ONE (11:30)
[2021-12-24] MEDS: POTASSIUM CHLORIDE 20 MEQ ER TABLET PO ONE ×2 (11:33→12:06)
[2021-12-24 13:00] LABS: AMPHET/METH SCREEN,URINE POSITIVE (NEGATIVE); BARBITURATE SCREEN, URINE NEGATIVE (NEGATIVE); BENZODIAZEPINES SCREEN,URINE NEGATIVE (NEGATIVE); CANNABINOID SCREEN,URINE NEGATIVE (NEGATIVE); COCAINE SCREEN,URINE NEGATIVE (NEGATIVE); METHADONE SCREEN, URINE NEGATIVE (NEGATIVE); OPIATE SCREEN,URINE NEGATIVE (NEGATIVE)
[2021-12-24 13:01] LABS: PHENCYCLIDINE SCREEN,URINE NEGATIVE (NEGATIVE)
[2021-12-24 13:14] LABS: CREATINE KINASE, TOTAL ONLY 359 U/L (26-192)
[2021-12-24 15:59] VITALS: BP 115/71
== END 2021-12-24 16:06 | disposition home or self-care (01) ==
LOC: EMS 08:15
DX: E86.0 Dehydration (principal); F15.10 Other stimulant abuse, uncomplicated; F10.20 Alcohol dependence, uncomplicated; R26.89 Other abnormalities of gait and mobility; F17.210 Nicotine dependence, cigarettes, uncomplicated; F31.9 Bipolar disorder, unspecified; Z87.39 Personal history of other diseases of the musculoskeletal system and connective tissue; Z91.013 Allergy to seafood; Y90.0 Blood alcohol level of less than 20 mg/100 ml
CPT/HCPCS: 99285; 96374; 96361; 70450; 71045; 80053; 82550; 82962; 85025; 36415; 93005; 80307; G0480; J2060; J7030; J7040

== ENCOUNTER 2022-01-10 09:35 | Emergency (ER) | payer MEDICAID ==
[~2022-01-10] VITALS: Ht 157.5 cm; Wt 71.4 kg
[2022-01-10 09:49] VITALS: BP 112/65
[2022-01-10] MEDS ORDERED: LORazepam 2 MG/ML VIAL IM ONE (10:15)
[2022-01-10] MEDS ORDERED: DiphenhydrAMINE HCL 50 MG/ML VIAL IM ONE (10:15)
[2022-01-10] MEDS ORDERED: HALOPERIDOL LACTATE 5 MG/ML VIAL IM ONE (10:15)
== END 2022-01-10 17:42 | disposition left against medical advice (07) ==
LOC: EMS 09:35
DX: M25.572 Pain in left ankle and joints of left foot (principal); M25.571 Pain in right ankle and joints of right foot; F19.10 Other psychoactive substance abuse, uncomplicated; F10.20 Alcohol dependence, uncomplicated; F31.9 Bipolar disorder, unspecified; G89.29 Other chronic pain; F17.210 Nicotine dependence, cigarettes, uncomplicated; F15.90 Other stimulant use, unspecified, uncomplicated; Z59.00 Homelessness unspecified; Z53.29 Procedure and treatment not carried out because of patient's decision for other reasons; Z91.013 Allergy to seafood
CPT/HCPCS: 99281; 99283

== ENCOUNTER 2022-08-20 08:24 | Inpatient (IN) | payer MEDICAID ==
[~2022-08-20] VITALS: Ht 170.2 cm; Wt 74.0 kg
[~2022-08-20 08:24] MED LIST changes: +ACID1TAB8 PO; +BISM-156 PO; +CHOL500013 PO; +FURO20 PO; +LACT10SO10 PO; +METR500 PO; +MULT1CAP36 PO; +PANT-31 PO; +PENT400T72 PO; +RIFAX550 PO; +RISP0.5T61 PO; +RISP1TAB98 PO; +SPIR50TA27 PO; +TETR-58 PO
[2022-08-20] MEDS ORDERED: NITROGLYCERIN 2% (1 GM=INCH) OINTMENT PACKET TP ONE (09:15)
[2022-08-20] MEDS ORDERED: FUROSEMIDE 40 MG/4 ML VIAL IVP ONE (09:15)
[2022-08-20 09:41] LABS: EOSINOPHILS % (AUTO) 3.8 % (1.0-6.0); HEMATOCRIT 29.8 % (36-46); HEMOGLOBIN 9.7 g/dL (12.0-16.0); LYMPHOCYTES # (AUTO) 0.8 K/uL (1.0-4.8); LYMPHOCYTES % (AUTO) 34.3 % (22.0-44.0); MEAN CORPUSCULAR HEMOGLOBIN 33.1 pg (26.0-34.0); MEAN CORPUSCULAR HGB CONC 32.4 G/dL (31.0-37.0); MEAN CORPUSCULAR VOLUME 102 fL (80-100); MONOCYTES # (AUTO) 0.4 K/uL (0.1-1.0); MONOCYTES % (AUTO) 15.8 % (2.0-9.0); NEUTROPHILS % (AUTO) 44.1 % (40.0-70.0); PLATELET COUNT (AUTO) 82 K/uL (150-450); RED BLOOD CELL COUNT(AUTO) 2.92 MIL/uL (4.00-5.20); RED CELL DISTRIBUTION WIDTH 20.1 % (11.5-14.5)
[2022-08-20 09:44] LABS: ANION GAP 8 mmol/L (8-16); CARBON DIOXIDE 25 mmol/L (22-29); CHLORIDE 104 mmol/L (98-107); CREATININE 0.58 mg/dL (0.60-1.30); GLOMERULAR FILTR. RATE CALC > 60 mL/min (>60); GLUCOSE,RANDOM 87 mg/dL (70-110); POTASSIUM 3.6 mmol/L (3.5-5.1); SODIUM SERUM 137 mmol/L (136-145)
[2022-08-20 09:47] LABS: B-TYPE NATRIURETIC PEPTIDE 92 pg/mL (0-100)
[2022-08-20 09:50] LABS: ALANINE AMINOTRANSFERASE 17 U/L (12-78); ALBUMIN 1.7 g/dL (3.4-5.0); ALKALINE PHOSPHATASE 149 U/L (46-116); ASPARTATE AMINOTRANSFERASE 50 U/L (15-37); BILIRUBIN,TOTAL 4.9 mg/dL (0.1-1.0); CREATINE KINASE, TOTAL ONLY 65 U/L (26-192); TOTAL PROTEIN, SERUM 7.3 g/dL (6.4-8.2)
[2022-08-20 09:58] LABS: INR 1.5 (0.9-1.1); PROTHROMBIN TIME 15.3 SEC (9.4-11.6)
[2022-08-20] MEDS ORDERED: ONDANSETRON HCL 4 MG/2 ML VIAL IVP PRN (10:00)
[2022-08-20] MEDS ORDERED: MAGNESIUM SULFATE 2 GM, MVI, ADULT NO.1 WITH VIT K 10 ML, THIAMINE 100 MG, FOLIC ACID 1... IV ONE ×5 (10:00)
[2022-08-20 11:08] LABS: AMMONIA 19 umol/L (11-32)
[2022-08-20] MEDS: LACTULOSE 20 GM/30 ML SOLUTION UDCUP PO SCH (14:06)
[2022-08-20] MEDS: FUROSEMIDE 40 MG/4 ML VIAL IVP SCH (14:06)
[2022-08-20 15:06] VITALS: BP 137/69; PULSE 94; RESP 18; TEMP 98.1
[2022-08-20 15:12] LABS: APPEARANCE,URINE CLEAR (CLEAR); BILIRUBIN,URINE NEGATIVE (NEGATIVE); GLUCOSE, URINE (UA) NEGATIVE (NEGATIVE); KETONES,URINE NEGATIVE (NEGATIVE); LEUKOCYTE ESTERASE ,URINE NEGATIVE (NEGATIVE); NITRATE,URINE NEGATIVE (NEGATIVE); OCCULT BLOOD,URINE NEGATIVE (NEGATIVE); PH,URINE 5.5 (5.0-8.0); PROTEIN,URINE NEGATIVE (NEGATIVE); SPECIFIC GRAVITIY, URINE 1.005 (1.003-1.030); UROBILINOGEN,URINE <=1.0 mg/dL (<=1.0)
[2022-08-20 15:18] LABS: AMPHET/METH SCREEN,URINE NEGATIVE (NEGATIVE); BARBITURATE SCREEN, URINE NEGATIVE (NEGATIVE); BENZODIAZEPINES SCREEN,URINE NEGATIVE (NEGATIVE); CANNABINOID SCREEN,URINE NEGATIVE (NEGATIVE); COCAINE SCREEN,URINE NEGATIVE (NEGATIVE); METHADONE SCREEN, URINE NEGATIVE (NEGATIVE); OPIATE SCREEN,URINE NEGATIVE (NEGATIVE); PHENCYCLIDINE SCREEN,URINE NEGATIVE (NEGATIVE)
[2022-08-20] MEDS: SPIRONOLACTONE 50 MG TABLET PO SCH (16:38)
[2022-08-20] MEDS: HEPARIN SODIUM,PORCINE 5,000 UNITS/ML VIAL SQ SCH ×2 (16:38→23:08)
[2022-08-20] MEDS: ACETAMINOPHEN 325 MG TABLET PO PRN (20:48)
[2022-08-20] MEDS: DOCUSATE SODIUM 100 MG CAPSULE PO SCH (20:48)
[2022-08-20 20:51] VITALS: BP 112/62; PULSE 91; RESP 20; TEMP 99.7
[2022-08-20 21:17] LABS: BASOPHILS % (AUTO) 1.4 % (0.0-2.0); EOSINOPHILS % (AUTO) 4.4 % (1.0-6.0); HEMATOCRIT 27.8 % (36-46); LYMPHOCYTES # (AUTO) 0.9 K/uL (1.0-4.8); LYMPHOCYTES % (AUTO) 31.9 % (22.0-44.0); MEAN CORPUSCULAR HEMOGLOBIN 33.1 pg (26.0-34.0); MEAN CORPUSCULAR HGB CONC 32.5 G/dL (31.0-37.0); MEAN CORPUSCULAR VOLUME 102 fL (80-100); MONOCYTES # (AUTO) 0.5 K/uL (0.1-1.0); MONOCYTES % (AUTO) 16.4 % (2.0-9.0); NEUTROPHILS # (AUTO) 1.4 K/uL (1.8-7.7); NEUTROPHILS % (AUTO) 45.9 % (40.0-70.0); PLATELET COUNT (AUTO) 83 K/uL (150-450); RED BLOOD CELL COUNT(AUTO) 2.73 MIL/uL (4.00-5.20); RED CELL DISTRIBUTION WIDTH 19.5 % (11.5-14.5)
[2022-08-20 21:35] LABS: PLATELET MORPHOLOGY COMMENT NOTE
[2022-08-20 23:34] VITALS: BP 107/54; PULSE 85; RESP 22; TEMP 97.7
[2022-08-21 04:11] VITALS: BP 109/60; PULSE 77; RESP 19; TEMP 98.9
[2022-08-21] MEDS: SPIRONOLACTONE 50 MG TABLET PO SCH (08:29)
[2022-08-21] MEDS: LACTULOSE 20 GM/30 ML SOLUTION UDCUP PO SCH (08:30)
[2022-08-21] MEDS: DOCUSATE SODIUM 100 MG CAPSULE PO SCH ×2 (08:30→20:29)
[2022-08-21] MEDS: FUROSEMIDE 40 MG/4 ML VIAL IVP SCH (08:30)
[2022-08-21] MEDS: FAMOTIDINE 20 MG TABLET PO SCH (08:30)
[2022-08-21] MEDS: HEPARIN SODIUM,PORCINE 5,000 UNITS/ML VIAL SQ SCH ×2 (08:30→20:28)
[2022-08-21 08:33] VITALS: BP 110/66; PULSE 86; RESP 20; TEMP 97.9
[2022-08-21 12:03] VITALS: BP 115/66; PULSE 81; RESP 21; TEMP 97.9
[2022-08-21 16:40] VITALS: BP 113/60; PULSE 80; RESP 20; TEMP 98.1
[2022-08-21 21:00] VITALS: BP 108/59; PULSE 89; RESP 21; TEMP 98.3
[2022-08-22 00:30] VITALS: BP 126/85; PULSE 77; RESP 20; TEMP 97.9
[2022-08-22 05:13] VITALS: BP 97/44; PULSE 93; RESP 22; TEMP 98.5
[2022-08-22 06:47] LABS: BASOPHILS % (AUTO) 1.1 % (0.0-2.0); EOSINOPHILS % (AUTO) 4.2 % (1.0-6.0); HEMATOCRIT 30.4 % (36-46); HEMOGLOBIN 10.3 g/dL (12.0-16.0); LYMPHOCYTES # (AUTO) 1.1 K/uL (1.0-4.8); LYMPHOCYTES % (AUTO) 37.6 % (22.0-44.0); MEAN CORPUSCULAR HEMOGLOBIN 34.5 pg (26.0-34.0); MEAN CORPUSCULAR VOLUME 101 fL (80-100); MONOCYTES # (AUTO) 0.5 K/uL (0.1-1.0); MONOCYTES % (AUTO) 17.8 % (2.0-9.0); NEUTROPHILS # (AUTO) 1.1 K/uL (1.8-7.7); NEUTROPHILS % (AUTO) 39.3 % (40.0-70.0); PLATELET COUNT (AUTO) 71 K/uL (150-450); RED CELL DISTRIBUTION WIDTH 19.3 % (11.5-14.5)
[2022-08-22 06:51] LABS: ANION GAP 6 mmol/L (8-16); CALCIUM, TOTAL 8.4 mg/dL (8.8-10.5); CARBON DIOXIDE 29 mmol/L (22-29); CHLORIDE 102 mmol/L (98-107); CREATININE 0.67 mg/dL (0.60-1.30); GLOMERULAR FILTR. RATE CALC > 60 mL/min (>60); GLUCOSE,RANDOM 76 mg/dL (70-110); POTASSIUM 3.7 mmol/L (3.5-5.1); SODIUM SERUM 137 mmol/L (136-145)
[2022-08-22 07:39] VITALS: BP 121/82; PULSE 84; TEMP 98.2
[2022-08-22] MEDS: FUROSEMIDE 40 MG/4 ML VIAL IVP SCH (08:46)
[2022-08-22] MEDS: SPIRONOLACTONE 50 MG TABLET PO SCH (08:46)
[2022-08-22] MEDS: FAMOTIDINE 20 MG TABLET PO SCH (08:47)
[2022-08-22] MEDS: HEPARIN SODIUM,PORCINE 5,000 UNITS/ML VIAL SQ SCH ×2 (08:47→20:20)
[2022-08-22] MEDS: DOCUSATE SODIUM 100 MG CAPSULE PO SCH ×2 (08:47→20:18)
[2022-08-22] MEDS: LACTULOSE 20 GM/30 ML SOLUTION UDCUP PO SCH (08:47)
[2022-08-22 11:51] VITALS: BP 123/69; PULSE 81; RESP 18; TEMP 98
[2022-08-22 16:15] VITALS: BP 122/72; PULSE 82; RESP 20; TEMP 98
[2022-08-22 16:41] LABS: SPECIMENTYPE,BODY FLUID THORACENTESIS
[2022-08-22 17:16] LABS: APPEARANCE,SPUN,BODY FLUID CLEAR (CLEAR); APPEARANCE,UNSPUN,BODY FLUID HAZY (CLEAR); BODY FLUID RBC 178.3 /cu. mm.; COLOR,BODY FLUID YELLOW (LT YELLOW); LYMPHOCYTES,BODY FLUID 55 %; MONOCYTES,BODY FLUID 21 %; NEUTROPHILS,BODY FLUID 11 %; PH, BODY FLUID 8; TOTAL VOLUME,BODY FLUID 1700 mL; WBC, BODY FLUID 130.56 /cu. mm.
[2022-08-22] MEDS: ACETAMINOPHEN 325 MG TABLET PO PRN (18:09)
[2022-08-22 19:52] VITALS: BP 102/57; PULSE 85; RESP 24; TEMP 99
[2022-08-23 00:33] VITALS: BP 104/53; PULSE 77; RESP 24; TEMP 99.2
[2022-08-23 05:30] VITALS: BP 101/57; PULSE 71; RESP 24; TEMP 98.7
[2022-08-23 06:29] LABS: EOSINOPHILS % (AUTO) 4.1 % (1.0-6.0); HEMATOCRIT 28.6 % (36-46); HEMOGLOBIN 9.7 g/dL (12.0-16.0); LYMPHOCYTES # (AUTO) 0.9 K/uL (1.0-4.8); LYMPHOCYTES % (AUTO) 37.4 % (22.0-44.0); MEAN CORPUSCULAR HEMOGLOBIN 34.3 pg (26.0-34.0); MEAN CORPUSCULAR HGB CONC 33.8 G/dL (31.0-37.0); MEAN CORPUSCULAR VOLUME 101 fL (80-100); MONOCYTES # (AUTO) 0.4 K/uL (0.1-1.0); MONOCYTES % (AUTO) 17.8 % (2.0-9.0); NEUTROPHILS % (AUTO) 39.7 % (40.0-70.0); PLATELET COUNT (AUTO) 64 K/uL (150-450); RED BLOOD CELL COUNT(AUTO) 2.82 MIL/uL (4.00-5.20); RED CELL DISTRIBUTION WIDTH 19.2 % (11.5-14.5)
[2022-08-23 06:48] LABS: ALANINE AMINOTRANSFERASE 12 U/L (12-78); ALBUMIN 1.5 g/dL (3.4-5.0); ALKALINE PHOSPHATASE 124 U/L (46-116); ANION GAP 6 mmol/L (8-16); ASPARTATE AMINOTRANSFERASE 40 U/L (15-37); BILIRUBIN,TOTAL 3.7 mg/dL (0.1-1.0); CALCIUM, TOTAL 7.9 mg/dL (8.8-10.5); CARBON DIOXIDE 28 mmol/L (22-29); CHLORIDE 105 mmol/L (98-107); CREATININE 0.75 mg/dL (0.60-1.30); GLOMERULAR FILTR. RATE CALC > 60 mL/min (>60); GLUCOSE,RANDOM 79 mg/dL (70-110); POTASSIUM 3.8 mmol/L (3.5-5.1); SODIUM SERUM 139 mmol/L (136-145); TOTAL PROTEIN, SERUM 6.6 g/dL (6.4-8.2)
[2022-08-23 07:59] VITALS: BP 101/65; PULSE 74; RESP 16; TEMP 98.4
[2022-08-23] MEDS: FAMOTIDINE 20 MG TABLET PO SCH (08:07)
[2022-08-23] MEDS: SPIRONOLACTONE 50 MG TABLET PO SCH (08:07)
[2022-08-23] MEDS: LACTULOSE 20 GM/30 ML SOLUTION UDCUP PO SCH (08:08)
[2022-08-23] MEDS: DOCUSATE SODIUM 100 MG CAPSULE PO SCH ×2 (08:08→22:14)
[2022-08-23] MEDS: FUROSEMIDE 40 MG/4 ML VIAL IVP SCH (08:08)
[2022-08-23] MEDS: HEPARIN SODIUM,PORCINE 5,000 UNITS/ML VIAL SQ SCH ×2 (09:00→21:00)
[2022-08-23 11:19] VITALS: BP 107/58; PULSE 80; RESP 16; TEMP 98.1
[2022-08-23 20:00] VITALS: BP 98/61; PULSE 85; RESP 20; TEMP 98.2
[2022-08-24] VITALS: BP 104/72; PULSE 84; RESP 20; TEMP 98
[2022-08-24 04:00] VITALS: BP 109/64; PULSE 78; RESP 19; TEMP 98.2
[2022-08-24 08:04] VITALS: BP 104/59; PULSE 80; RESP 18; TEMP 98.6
[2022-08-24] MEDS: FUROSEMIDE 40 MG/4 ML VIAL IVP SCH (08:12)
[2022-08-24] MEDS: FAMOTIDINE 20 MG TABLET PO SCH (08:13)
[2022-08-24] MEDS: SPIRONOLACTONE 50 MG TABLET PO SCH (08:13)
[2022-08-24] MEDS: DOCUSATE SODIUM 100 MG CAPSULE PO SCH ×2 (08:13→20:27)
[2022-08-24] MEDS: LACTULOSE 20 GM/30 ML SOLUTION UDCUP PO SCH (08:13)
[2022-08-24] MEDS: HEPARIN SODIUM,PORCINE 5,000 UNITS/ML VIAL SQ SCH ×2 (08:16→20:26)
[2022-08-24 11:07] VITALS: BP 114/62; PULSE 84; RESP 16; TEMP 97.8
[2022-08-24 15:14] VITALS: BP 115/58; PULSE 85; RESP 18; TEMP 98.3
[2022-08-24] MEDS: ACETAMINOPHEN 325 MG TABLET PO PRN (20:27)
[2022-08-24 20:40] VITALS: BP 95/52; PULSE 87; RESP 16; TEMP 99.6
[2022-08-25] MEDS ORDERED: SODIUM CHLORIDE 0.9% 250 ML IV ONE (00:15)
[2022-08-25 00:17] VITALS: BP 84/53; PULSE 77; RESP 17; TEMP 98
[2022-08-25 04:00] VITALS: BP 117/64; PULSE 70; RESP 18; TEMP 97.8
[2022-08-25 06:43] LABS: BASOPHILS % (AUTO) 0.7 % (0.0-2.0); EOSINOPHILS % (AUTO) 4.9 % (1.0-6.0); HEMATOCRIT 30.5 % (36-46); LYMPHOCYTES # (AUTO) 1.2 K/uL (1.0-4.8); LYMPHOCYTES % (AUTO) 44.5 % (22.0-44.0); MEAN CORPUSCULAR HEMOGLOBIN 33.2 pg (26.0-34.0); MEAN CORPUSCULAR HGB CONC 32.8 G/dL (31.0-37.0); MEAN CORPUSCULAR VOLUME 101 fL (80-100); MONOCYTES # (AUTO) 0.5 K/uL (0.1-1.0); MONOCYTES % (AUTO) 18.4 % (2.0-9.0); NEUTROPHILS # (AUTO) 0.9 K/uL (1.8-7.7); NEUTROPHILS % (AUTO) 31.5 % (40.0-70.0); PLATELET COUNT (AUTO) 65 K/uL (150-450); RED BLOOD CELL COUNT(AUTO) 3.01 MIL/uL (4.00-5.20); RED CELL DISTRIBUTION WIDTH 19.1 % (11.5-14.5)
[2022-08-25 07:34] LABS: ALANINE AMINOTRANSFERASE 12 U/L (12-78); ALBUMIN 1.5 g/dL (3.4-5.0); ALKALINE PHOSPHATASE 126 U/L (46-116); ANION GAP 5 mmol/L (8-16); ASPARTATE AMINOTRANSFERASE 48 U/L (15-37); BILIRUBIN,TOTAL 3.4 mg/dL (0.1-1.0); CARBON DIOXIDE 27 mmol/L (22-29); CHLORIDE 106 mmol/L (98-107); CREATININE 0.76 mg/dL (0.60-1.30); GLOMERULAR FILTR. RATE CALC > 60 mL/min (>60); GLUCOSE,RANDOM 86 mg/dL (70-110); LACTATE DEHYDROGENASE 178 U/L (81-234); SODIUM SERUM 138 mmol/L (136-145); TOTAL PROTEIN, SERUM 6.6 g/dL (6.4-8.2)
[2022-08-25 07:50] VITALS: BP 112/72; PULSE 72; RESP 18; TEMP 98
[2022-08-25] MEDS: FUROSEMIDE 40 MG/4 ML VIAL IVP SCH (08:20)
[2022-08-25] MEDS: LACTULOSE 20 GM/30 ML SOLUTION UDCUP PO SCH (08:20)
[2022-08-25] MEDS: SPIRONOLACTONE 50 MG TABLET PO SCH (08:20)
[2022-08-25] MEDS: DOCUSATE SODIUM 100 MG CAPSULE PO SCH (08:21)
[2022-08-25] MEDS: FAMOTIDINE 20 MG TABLET PO SCH (08:21)
[2022-08-25] MEDS: HEPARIN SODIUM,PORCINE 5,000 UNITS/ML VIAL SQ SCH (08:21)
[2022-08-25] MEDS ORDERED: LACT10SO10 PO (09:51)
[2022-08-25] MEDS ORDERED: FURO20 PO (09:51)
[2022-08-25] MEDS ORDERED: SPIR50TA PO (09:51)
[2022-08-25 11:34] VITALS: BP 106/60; PULSE 83; RESP 16; TEMP 98.1
[2022-08-25 15:50] VITALS: BP 119/69; PULSE 78; RESP 16; TEMP 97.4
== END 2022-08-25 17:15 | disposition home or self-care (01) | DRG 194 ==
LOC: EMS 08:25 → AHU 10:39 → 5S 13:27
PROVIDERS: ADMIT Internal Medicine; ATTEND Internal Medicine
PROC: 0W993ZZ Drainage of Right Pleural Cavity, Percutaneous Approach (ICD-10-PCS; principal; 2022-08-22)
DX: J94.8 Other specified pleural conditions (principal); I50.9 Heart failure, unspecified; I11.0 Hypertensive heart disease with heart failure; D61.818 Other pancytopenia; K76.82 Hepatic encephalopathy; I07.1 Rheumatic tricuspid insufficiency; K70.30 Alcoholic cirrhosis of liver without ascites; J44.9 Chronic obstructive pulmonary disease, unspecified; F15.90 Other stimulant use, unspecified, uncomplicated; F10.10 Alcohol abuse, uncomplicated; Z86.19 Personal history of other infectious and parasitic diseases; Z91.199 Patient's noncompliance with other medical treatment and regimen due to unspecified reason; Z79.899 Other long term (current) drug therapy; Z59.00 Homelessness unspecified; Z87.891 Personal history of nicotine dependence; Z91.148 Patient's other noncompliance with medication regimen for other reason
CPT/HCPCS: 32555; 71045; 71250; 76700; 76942; 80048; 80053; 80307; 81003; 82140; 82465; 82550; 82945; 83615; 83735; 83880; 83986; 84157; 84484; 84703; 85025; 85610; 85730; 87015; 87075; 87101; 87205; 87206; 89051; 93005; 97116; 97162; 99285; J1644; J1940; J3411; J3475; J3490; J7030; J7050; 36415-L1; 36415-TC; 87070

== ENCOUNTER 2022-12-19 15:17 | Inpatient (IN) | payer MEDICAID, OTHER ==
[~2022-12-19] VITALS: Ht 162.6 cm; Wt 73.7 kg
[~2022-12-19 15:17] MED LIST changes: -ACID1TAB8 PO; -BISM-156 PO; -CEPH-558 PO; -DIPH50CA37 PO; -METR500 PO; -RISP1TAB48 PO; -RISP1TAB98 PO; +SPIR50TA PO; -SPIR50TA27 PO; -SULF-261 PO; -TERB250T90 PO; -TETR-58 PO
[2022-12-19] MEDS ORDERED: SODIUM CHLORIDE 0.9% 1,000 ML IV ONE ×2 (15:30→19:00)
[2022-12-19] MEDS ORDERED: 0.9% SODIUM CHLORIDE 10 ML SYRINGE IVP PRN (15:30)
[2022-12-19] MEDS ORDERED: RISP0.5T66 PO (15:34)
[2022-12-19] MEDS ORDERED: ACETAMINOPHEN 1000 MG/ISO-OSM 100 ML IV ONE (16:00)
[2022-12-19] MEDS ORDERED: CefTRIAXone 1 GM/DEXTROSE 50 ML IV ONE (16:15)
[2022-12-19] MEDS ORDERED: SODIUM CHLORIDE 0.9% 1,950 ML IV ONE (16:15)
[2022-12-19 16:45] LABS: BASOPHILS % (AUTO) 0.8 % (0.0-2.0); EOSINOPHILS % (AUTO) 0.3 % (1.0-6.0); HEMATOCRIT 30.2 % (36-46); HEMOGLOBIN 10.1 g/dL (12.0-16.0); LYMPHOCYTES # (AUTO) 0.4 K/uL (1.0-4.8); LYMPHOCYTES % (AUTO) 8.6 % (22.0-44.0); MEAN CORPUSCULAR HEMOGLOBIN 32.1 pg (26.0-34.0); MEAN CORPUSCULAR HGB CONC 33.4 G/dL (31.0-37.0); MEAN CORPUSCULAR VOLUME 96 fL (80-100); MONOCYTES # (AUTO) 0.4 K/uL (0.1-1.0); MONOCYTES % (AUTO) 8.5 % (2.0-9.0); NEUTROPHILS # (AUTO) 3.7 K/uL (1.8-7.7); NEUTROPHILS % (AUTO) 81.8 % (40.0-70.0); RED BLOOD CELL COUNT(AUTO) 3.14 MIL/uL (4.00-5.20); RED CELL DISTRIBUTION WIDTH 24.5 % (11.5-14.5); WHITE BLOOD COUNT (AUTO) 4.5 K/uL (4.5-11.0)
[2022-12-19 16:47] LABS: APPEARANCE,URINE TURBID (CLEAR); COLOR,URINE DARK YELLOW (YELLOW); GLUCOSE, URINE (UA) NEGATIVE (NEGATIVE); KETONES,URINE NEGATIVE (NEGATIVE); LEUKOCYTE ESTERASE ,URINE LARGE (NEGATIVE); NITRATE,URINE POSITIVE (NEGATIVE); OCCULT BLOOD,URINE SMALL (NEGATIVE); PH,URINE 5.5 (5.0-8.0); PROTEIN,URINE 30-70 mg/dL (NEGATIVE); SPECIFIC GRAVITIY, URINE 1.015 (1.003-1.030)
[2022-12-19 16:49] LABS: PLATELET COUNT (AUTO) 71 K/uL (150-450)
[2022-12-19 16:52] LABS: BILIRUBIN,URINE SMALL (NEGATIVE)
[2022-12-19 16:53] LABS: ANION GAP 13 mmol/L (8-16); CALCIUM, TOTAL 8.1 mg/dL (8.8-10.5); CARBON DIOXIDE 22 mmol/L (22-29); CHLORIDE 101 mmol/L (98-107); CREATININE 0.87 mg/dL (0.60-1.30); GLOMERULAR FILTR. RATE CALC > 60 mL/min (>60); GLUCOSE,RANDOM 76 mg/dL (70-110); POTASSIUM 3.1 mmol/L (3.5-5.1); SODIUM SERUM 136 mmol/L (136-145); UREA NITROGEN, BLOOD 7 mg/dL (7-18)
[2022-12-19 16:54] LABS: INR 1.6 (0.9-1.1); PROTHROMBIN TIME 16.2 SEC (9.4-11.6)
[2022-12-19 16:57] LABS: ALANINE AMINOTRANSFERASE 22 U/L (12-78); ALBUMIN 2.1 g/dL (3.4-5.0); ALKALINE PHOSPHATASE 125 U/L (46-116); ASPARTATE AMINOTRANSFERASE 70 U/L (15-37); TOTAL PROTEIN, SERUM 8.7 g/dL (6.4-8.2); TROPONIN I-HIGH SENSITIVITY 15 ng/L (<51)
[2022-12-19 16:58] LABS: ALCOHOL, URINE DRUG SCREEN NEGATIVE (NEGATIVE); AMPHET/METH SCREEN,URINE POSITIVE (NEGATIVE); BARBITURATE SCREEN, URINE NEGATIVE (NEGATIVE); BENZODIAZEPINES SCREEN,URINE NEGATIVE (NEGATIVE); CANNABINOID SCREEN,URINE NEGATIVE (NEGATIVE); COCAINE SCREEN,URINE NEGATIVE (NEGATIVE); METHADONE SCREEN, URINE NEGATIVE (NEGATIVE); OPIATE SCREEN,URINE NEGATIVE (NEGATIVE); PHENCYCLIDINE SCREEN,URINE NEGATIVE (NEGATIVE)
[2022-12-19] MEDS ORDERED: POTASSIUM CHLORIDE 20 MEQ ER TABLET PO ONE (17:00)
[2022-12-19 17:02] LABS: PH,URINE DRUG SCREEN 5.5 (5.0-8.0)
[2022-12-19 17:03] LABS: LACTIC ACID 5.3 mmol/L (0.4-2.0)
[2022-12-19 17:15] LABS: BACTERIA,URINE Many /HPF (None Seen); WBC,URINE >100 /HPF (0-5)
[2022-12-19 17:16] LABS: RBC,URINE 0-2 /HPF (0-2)
[2022-12-19 17:55] LABS: RBC MORPHOLOGY COMMENT ABNORMAL RBC MORPH
[2022-12-19] MEDS ORDERED: ZOLPIDEM TARTRATE 5 MG TABLET PO PRN (19:00)
[2022-12-19] MEDS ORDERED: ONDANSETRON HCL 4 MG/2 ML VIAL IVP PRN (19:00)
[2022-12-19] MEDS ORDERED: MAGNESIUM HYDROXIDE SUSPENSION 30 ML UDCUP PO PRN (19:00)
[2022-12-19] MEDS ORDERED: POTASSIUM CHLORIDE 20 MEQ ER TABLET PO PRN (19:00)
[2022-12-19] MEDS ORDERED: POTASSIUM CHL 10 MEQ/WATER 50 ML IV PRN (19:00)
[2022-12-19] MEDS ORDERED: ACETAMINOPHEN 325 MG TABLET PO PRN (19:00)
[2022-12-19 19:52] LABS: INFLUENZA TYPE A NEGATIVE FOR TYPE A (NEGATIVE); INFLUENZA TYPE B NEGATIVE FOR TYPE B (NEGATIVE)
[2022-12-19] MEDS: DOCUSATE SODIUM 100 MG CAPSULE PO SCH (20:38)
[2022-12-19] MEDS: HEPARIN SODIUM,PORCINE 5,000 UNITS/ML VIAL SQ SCH (23:26)
[2022-12-19 23:30] VITALS: BP 110/65; PULSE 99; RESP 18; TEMP 97.8
[2022-12-20 05:00] VITALS: BP 107/61; PULSE 98; RESP 18; TEMP 97.6
[2022-12-20] MEDS ORDERED: INFLUENZA VIRUS VACCINE QVS 2023-24 (6MO+)/PF 60 MCG/0.5 ML SYRINGE IM. ONE (05:00)
[2022-12-20] MEDS: HEPARIN SODIUM,PORCINE 5,000 UNITS/ML VIAL SQ SCH (08:00)
[2022-12-20] MEDS: FAMOTIDINE 20 MG TABLET PO SCH (08:25)
[2022-12-20] MEDS: SPIRONOLACTONE 25 MG TABLET PO SCH (08:25)
[2022-12-20] MEDS: DOCUSATE SODIUM 100 MG CAPSULE PO SCH ×2 (08:25→20:01)
[2022-12-20] MEDS: FUROSEMIDE 20 MG TABLET PO SCH (08:25)
[2022-12-20 08:49] VITALS: BP 111/68; PULSE 81; RESP 18; TEMP 97.5
[2022-12-20 16:21] VITALS: BP 105/65; PULSE 98; RESP 18; TEMP 98.3
[2022-12-20] MEDS ORDERED: SODIUM CHLORIDE 0.9% 500 ML IV ONE (17:42)
[2022-12-20] MEDS: CefTRIAXone 1 GM/DEXTROSE 50 ML IV SCH (17:44)
[2022-12-20 19:39] VITALS: BP 108/67; PULSE 94; RESP 19; TEMP 98.5
[2022-12-21 04:16] VITALS: BP 111/73; PULSE 95; RESP 18; TEMP 98.1
[2022-12-21 07:05] LABS: ALANINE AMINOTRANSFERASE 21 U/L (12-78); ALBUMIN 1.5 g/dL (3.4-5.0); ALKALINE PHOSPHATASE 99 U/L (46-116); ANION GAP 7 mmol/L (8-16); ASPARTATE AMINOTRANSFERASE 53 U/L (15-37); BILIRUBIN,TOTAL 3.8 mg/dL (0.1-1.0); CALCIUM, TOTAL 7.6 mg/dL (8.8-10.5); CARBON DIOXIDE 25 mmol/L (22-29); CHLORIDE 104 mmol/L (98-107); CREATININE 0.94 mg/dL (0.60-1.30); GLOMERULAR FILTR. RATE CALC > 60 mL/min (>60); GLUCOSE,RANDOM 141 mg/dL (70-110); SODIUM SERUM 136 mmol/L (136-145); TOTAL PROTEIN, SERUM 6.9 g/dL (6.4-8.2); UREA NITROGEN, BLOOD 8 mg/dL (7-18)
[2022-12-21 07:20] LABS: BASOPHILS % (AUTO) 0.9 % (0.0-2.0); EOSINOPHILS % (AUTO) 1.9 % (1.0-6.0); LYMPHOCYTES # (AUTO) 0.9 K/uL (1.0-4.8); LYMPHOCYTES % (AUTO) 31.2 % (22.0-44.0); MEAN CORPUSCULAR HEMOGLOBIN 32.1 pg (26.0-34.0); MEAN CORPUSCULAR HGB CONC 32.6 G/dL (31.0-37.0); MEAN CORPUSCULAR VOLUME 98 fL (80-100); MONOCYTES # (AUTO) 0.4 K/uL (0.1-1.0); NEUTROPHILS # (AUTO) 1.4 K/uL (1.8-7.7); PLATELET COUNT (AUTO) 56 K/uL (150-450); RED BLOOD CELL COUNT(AUTO) 2.61 MIL/uL (4.00-5.20); WHITE BLOOD COUNT (AUTO) 2.7 K/uL (4.5-11.0)
[2022-12-21 07:22] LABS: HEMOGLOBIN 8.4 g/dL (12.0-16.0)
[2022-12-21 07:23] LABS: HEMATOCRIT 25.6 % (36-46)
[2022-12-21 07:48] LABS: RBC MORPHOLOGY COMMENT DIMORPHIC RBC
[2022-12-21] MEDS: FUROSEMIDE 20 MG TABLET PO SCH (08:21)
[2022-12-21] MEDS: SPIRONOLACTONE 25 MG TABLET PO SCH (08:21)
[2022-12-21] MEDS: DOCUSATE SODIUM 100 MG CAPSULE PO SCH ×2 (08:21→20:24)
[2022-12-21] MEDS: FAMOTIDINE 20 MG TABLET PO SCH (08:21)
[2022-12-21] MEDS: PHYTONADIONE 10 MG/ML VIAL SQ SCH (08:22)
[2022-12-21 08:48] VITALS: BP 105/64; PULSE 90; RESP 18; TEMP 98.1
[2022-12-21 09:38] VITALS: BP 127/64; PULSE 92; RESP 18
[2022-12-21 16:30] VITALS: BP 125/68; PULSE 92; RESP 18; TEMP 99.3
[2022-12-21] MEDS: LACTULOSE 20 GM/30 ML SOLUTION UDCUP PO SCH ×2 (16:36→23:49)
[2022-12-21] MEDS: CefTRIAXone 1 GM/DEXTROSE 50 ML IV SCH (18:04)
[2022-12-21 19:38] VITALS: BP 123/74; PULSE 84; RESP 18; TEMP 98.3
[2022-12-22 04:24] VITALS: BP 123/65; PULSE 86; RESP 18; TEMP 98
[2022-12-22 06:25] LABS: BASOPHILS % (AUTO) 1.5 % (0.0-2.0); EOSINOPHILS % (AUTO) 1.7 % (1.0-6.0); HEMATOCRIT 27.3 % (36-46); HEMOGLOBIN 9.1 g/dL (12.0-16.0); LYMPHOCYTES # (AUTO) 1.2 K/uL (1.0-4.8); LYMPHOCYTES % (AUTO) 33.4 % (22.0-44.0); MEAN CORPUSCULAR HEMOGLOBIN 32.5 pg (26.0-34.0); MEAN CORPUSCULAR HGB CONC 33.3 G/dL (31.0-37.0); MEAN CORPUSCULAR VOLUME 98 fL (80-100); MONOCYTES # (AUTO) 0.5 K/uL (0.1-1.0); MONOCYTES % (AUTO) 14.9 % (2.0-9.0); NEUTROPHILS # (AUTO) 1.8 K/uL (1.8-7.7); NEUTROPHILS % (AUTO) 48.5 % (40.0-70.0); RED CELL DISTRIBUTION WIDTH 26.1 % (11.5-14.5); WHITE BLOOD COUNT (AUTO) 3.6 K/uL (4.5-11.0)
[2022-12-22 06:43] LABS: ALANINE AMINOTRANSFERASE 14 U/L (12-78); ALBUMIN 1.6 g/dL (3.4-5.0); ALKALINE PHOSPHATASE 113 U/L (46-116); ANION GAP 6 mmol/L (8-16); ASPARTATE AMINOTRANSFERASE 49 U/L (15-37); BILIRUBIN,TOTAL 3.1 mg/dL (0.1-1.0); CALCIUM, TOTAL 7.9 mg/dL (8.8-10.5); CARBON DIOXIDE 26 mmol/L (22-29); CHLORIDE 103 mmol/L (98-107); CREATININE 0.75 mg/dL (0.60-1.30); GLOMERULAR FILTR. RATE CALC > 60 mL/min (>60); GLUCOSE,RANDOM 94 mg/dL (70-110); POTASSIUM 4.1 mmol/L (3.5-5.1); SODIUM SERUM 134 mmol/L (136-145); TOTAL PROTEIN, SERUM 7.4 g/dL (6.4-8.2); UREA NITROGEN, BLOOD 10 mg/dL (7-18)
[2022-12-22 07:40] VITALS: BP 114/68; PULSE 85; RESP 18; TEMP 97.6
[2022-12-22 08:01] LABS: PLATELET COUNT (AUTO) 54 K/uL (150-450)
[2022-12-22] MEDS: SPIRONOLACTONE 25 MG TABLET PO SCH (08:01)
[2022-12-22] MEDS: FAMOTIDINE 20 MG TABLET PO SCH (08:01)
[2022-12-22 08:02] LABS: RBC MORPHOLOGY COMMENT DIMORPHIC RBC
[2022-12-22] MEDS: LACTULOSE 20 GM/30 ML SOLUTION UDCUP PO SCH ×3 (08:02→23:40)
[2022-12-22] MEDS: DOCUSATE SODIUM 100 MG CAPSULE PO SCH ×2 (08:02→21:00)
[2022-12-22] MEDS: FUROSEMIDE 20 MG TABLET PO SCH (08:02)
[2022-12-22] MEDS: PHYTONADIONE 10 MG/ML VIAL SQ SCH (08:04)
[2022-12-22 15:15] VITALS: BP 108/69; PULSE 80; RESP 20; TEMP 98
[2022-12-22] MEDS: CefTRIAXone 1 GM/DEXTROSE 50 ML IV SCH (18:10)
[2022-12-22 19:15] VITALS: BP 103/57; PULSE 91; RESP 18; TEMP 98.7
[2022-12-23 05:17] VITALS: BP 96/65; PULSE 88; RESP 20; TEMP 98.1
[2022-12-23 07:04] LABS: ALANINE AMINOTRANSFERASE 18 U/L (12-78); ALBUMIN 1.5 g/dL (3.4-5.0); ALKALINE PHOSPHATASE 102 U/L (46-116); ANION GAP 8 mmol/L (8-16); ASPARTATE AMINOTRANSFERASE 48 U/L (15-37); BILIRUBIN,TOTAL 3.6 mg/dL (0.1-1.0); CALCIUM, TOTAL 8.1 mg/dL (8.8-10.5); CARBON DIOXIDE 24 mmol/L (22-29); CHLORIDE 102 mmol/L (98-107); CREATININE 0.71 mg/dL (0.60-1.30); GLOMERULAR FILTR. RATE CALC > 60 mL/min (>60); GLUCOSE,RANDOM 85 mg/dL (70-110); POTASSIUM 4.1 mmol/L (3.5-5.1); SODIUM SERUM 134 mmol/L (136-145); TOTAL PROTEIN, SERUM 7.3 g/dL (6.4-8.2); UREA NITROGEN, BLOOD 11 mg/dL (7-18)
[2022-12-23 07:27] LABS: BASOPHILS % (AUTO) 0.7 % (0.0-2.0); EOSINOPHILS % (AUTO) 3.4 % (1.0-6.0); HEMATOCRIT 27.1 % (36-46); LYMPHOCYTES % (AUTO) 32.9 % (22.0-44.0); MEAN CORPUSCULAR HEMOGLOBIN 32.6 pg (26.0-34.0); MEAN CORPUSCULAR VOLUME 99 fL (80-100); MONOCYTES # (AUTO) 0.5 K/uL (0.1-1.0); MONOCYTES % (AUTO) 16.8 % (2.0-9.0); NEUTROPHILS # (AUTO) 1.4 K/uL (1.8-7.7); NEUTROPHILS % (AUTO) 46.2 % (40.0-70.0); PLATELET COUNT (AUTO) 46 K/uL (150-450); RED BLOOD CELL COUNT(AUTO) 2.74 MIL/uL (4.00-5.20); RED CELL DISTRIBUTION WIDTH 27.3 % (11.5-14.5); WHITE BLOOD COUNT (AUTO) 3.1 K/uL (4.5-11.0)
[2022-12-23 07:33] LABS: RBC MORPHOLOGY COMMENT DIMORPHIC RBC
[2022-12-23 08:18] VITALS: BP 106/62; PULSE 89; RESP 18; TEMP 98.4
[2022-12-23] MEDS: FUROSEMIDE 20 MG TABLET PO SCH (08:33)
[2022-12-23] MEDS: SPIRONOLACTONE 25 MG TABLET PO SCH (08:33)
[2022-12-23] MEDS: LACTULOSE 20 GM/30 ML SOLUTION UDCUP PO SCH (08:33)
[2022-12-23] MEDS: FAMOTIDINE 20 MG TABLET PO SCH (08:34)
[2022-12-23] MEDS: DOCUSATE SODIUM 100 MG CAPSULE PO SCH (08:34)
[2022-12-23] MEDS: PHYTONADIONE 10 MG/ML VIAL SQ SCH (08:35)
[2022-12-23] MEDS ORDERED: SPIR-37 PO (10:49)
[2022-12-23] MEDS ORDERED: LACT10SO10 PO (10:49)
== END 2022-12-23 13:13 | disposition home or self-care (01) ==
LOC: EMS 15:17 → 6S 22:00 → UNDOADMIN 22:00
PROVIDERS: ADMIT Internal Medicine; ATTEND Internal Medicine
PROC: 0W993ZZ Drainage of Right Pleural Cavity, Percutaneous Approach (ICD-10-PCS; principal; 2022-12-20)
DX: K76.82 Hepatic encephalopathy (principal); G92.8 Other toxic encephalopathy; D68.59 Other primary thrombophilia; D68.9 Coagulation defect, unspecified; J90 Pleural effusion, not elsewhere classified; N39.0 Urinary tract infection, site not specified; F29 Unspecified psychosis not due to a substance or known physiological condition; F17.210 Nicotine dependence, cigarettes, uncomplicated; M16.0 Bilateral primary osteoarthritis of hip; F41.9 Anxiety disorder, unspecified; G89.29 Other chronic pain; K74.60 Unspecified cirrhosis of liver; F15.10 Other stimulant abuse, uncomplicated; F31.9 Bipolar disorder, unspecified; I07.1 Rheumatic tricuspid insufficiency; I10 Essential (primary) hypertension; D64.9 Anemia, unspecified; D69.6 Thrombocytopenia, unspecified; Z59.00 Homelessness unspecified; I25.2 Old myocardial infarction; Z87.440 Personal history of urinary (tract) infections; Z91.199 Patient's noncompliance with other medical treatment and regimen due to unspecified reason; Z79.899 Other long term (current) drug therapy
CPT/HCPCS: 32555; 51702; 71045; 71250; 76942; 80053; 80307; 81001; 82140; 83605; 84132; 84145; 84484; 85025; 85049; 85610; 87040; 87075; 87086; 87186; 87205; 87804; 93005; 99291; G0480; J0131; J0696; J1644; J3430; J7030; J7040; 36415-L1; 36415-TC; 87070

== ENCOUNTER 2023-01-04 11:43 | Inpatient (IN) | payer OTHER ==
[~2023-01-04] VITALS: Ht 167.6 cm; Wt 72.0 kg
[2023-01-04] VITALS (7 sets, daily range): PULSE 98–120; RESP 18–40; O2SAT 82–95
[~2023-01-04 11:43] MED LIST changes: -RISP0.5T61 PO; +RISP0.5T66 PO; +SPIR-37 PO; -SPIR50TA PO
[2023-01-04] MEDS ORDERED: LORazepam 2 MG/ML VIAL IVP ONE (12:15)
[2023-01-04 12:26] LABS: ABG BASE EXCESS -14.4 mmol/L (-2.0-3.0); ABG CARBOXYHEMOGLOBIN 1.1 % (0.0-1.5); ABG HCO3 14.2 mmol/L (22.0-26.0); ABG METHEMOGLOBIN 0.3 % (0.0-1.5); ABG OXYGEN CONTENT 15.1 mL/dL (15.0-23.0); ABG OXYHEMOGLOBIN 92.7 % (94.0-100.0); ABG PCO2 30 mmHg (35-45); ABG PH 7.255 (7.35-7.450); ABG TOTAL HEMOGLOBIN 11.5 G/dL (12.0-18.0); PO2, ARTERIAL BG 81.4 mmHg (88.0-96.0); SOURCE, BLOOD GAS ARTERIAL; TEMPERATURE, FAHRENHEIT, BG 98.3 FAHREN (96.0-98.6)
[2023-01-04 12:27] LABS: ABG A-A DIFF O2 602.6 mmHg (10-20.0); ALLEN TEST, BLOOD GAS Positive; O2 DEVICE,BLOOD GAS NON REBREATHER (ROOM AIR); SITE, BLOOD GAS LFT RADIAL
[2023-01-04 12:40] LABS: BASOPHILS % (AUTO) 0.2 % (0.0-2.0); EOSINOPHILS % (AUTO) 0 % (1.0-6.0); HEMATOCRIT 31.9 % (36-46); HEMOGLOBIN 10.4 g/dL (12.0-16.0); LYMPHOCYTES # (AUTO) 0.4 K/uL (1.0-4.8); LYMPHOCYTES % (AUTO) 3.1 % (22.0-44.0); MEAN CORPUSCULAR HEMOGLOBIN 33.1 pg (26.0-34.0); MEAN CORPUSCULAR HGB CONC 32.6 G/dL (31.0-37.0); MEAN CORPUSCULAR VOLUME 102 fL (80-100); MONOCYTES # (AUTO) 0.7 K/uL (0.1-1.0); MONOCYTES % (AUTO) 6.4 % (2.0-9.0); NEUTROPHILS # (AUTO) 10.2 K/uL (1.8-7.7); PLATELET COUNT (AUTO) 127 K/uL (150-450); RED BLOOD CELL COUNT(AUTO) 3.14 MIL/uL (4.00-5.20); RED CELL DISTRIBUTION WIDTH 24.4 % (11.5-14.5); WHITE BLOOD COUNT (AUTO) 11.3 K/uL (4.5-11.0)
[2023-01-04 12:45] LABS: NEUTROPHILS % (AUTO) 90.3 % (40.0-70.0)
[2023-01-04 12:46] LABS: RBC MORPHOLOGY COMMENT ABNORMAL RBC MORPH
[2023-01-04 12:50] LABS: ANION GAP 16 mmol/L (8-16); CALCIUM, TOTAL 9.1 mg/dL (8.8-10.5); CARBON DIOXIDE 16 mmol/L (22-29); CHLORIDE 100 mmol/L (98-107); CREATININE 1.07 mg/dL (0.60-1.30); GLOMERULAR FILTR. RATE CALC 55 mL/min (>60); GLUCOSE,RANDOM 63 mg/dL (70-110); POTASSIUM 3.7 mmol/L (3.5-5.1); SODIUM SERUM 132 mmol/L (136-145); UREA NITROGEN, BLOOD 9 mg/dL (7-18)
[2023-01-04 12:51] LABS: ALCOHOL, BLOOD (SERUM) < 3 mg/dL (0-10)
[2023-01-04 12:56] LABS: INR 1.7 (0.9-1.1); PROTHROMBIN TIME 17.1 SEC (9.4-11.6)
[2023-01-04 12:58] LABS: AMMONIA 50 umol/L (11-32)
[2023-01-04 12:59] LABS: TROPONIN I-HIGH SENSITIVITY 8116 ng/L (<51)
[2023-01-04 13:01] LABS: LACTIC ACID 8.5 mmol/L (0.4-2.0)
[2023-01-04 13:02] LABS: B-TYPE NATRIURETIC PEPTIDE 1370 pg/mL (0-100)
[2023-01-04 13:15] LABS: ALANINE AMINOTRANSFERASE 32 U/L (12-78); ALBUMIN 2.2 g/dL (3.4-5.0); ALKALINE PHOSPHATASE 184 U/L (46-116); ASPARTATE AMINOTRANSFERASE 108 U/L (15-37); BILIRUBIN,TOTAL 7.4 mg/dL (0.1-1.0); CREATINE KINASE, TOTAL ONLY 585 U/L (26-192); TOTAL PROTEIN, SERUM 9.3 g/dL (6.4-8.2)
[2023-01-04] MEDS ORDERED: PIPERACILLIN/TAZO 3.375 GM/D5W 50 ML IV ONE (13:15)
[2023-01-04] MEDS ORDERED: SODIUM CHLORIDE 0.9% 2,250 ML IV ONE (13:15)
[2023-01-04] MEDS ORDERED: ACETAMINOPHEN 325 MG TABLET PO PRN ×2 (14:00→14:45)
[2023-01-04] MEDS ORDERED: ONDANSETRON HCL 4 MG/2 ML VIAL IVP PRN ×2 (14:00→14:45)
[2023-01-04 14:14] LABS: COVID AG,FIA SOURCE NASAL SWAB
[2023-01-04] MEDS ORDERED: BISACODYL 10 MG RECTAL RECTAL SUPPOSITORY PR PRN (14:45)
[2023-01-04 14:52] LABS: APPEARANCE,URINE HAZY (CLEAR); BILIRUBIN,URINE NEGATIVE (NEGATIVE); COLOR,URINE YELLOW (YELLOW); GLUCOSE, URINE (UA) NEGATIVE (NEGATIVE); KETONES,URINE NEGATIVE (NEGATIVE); LEUKOCYTE ESTERASE ,URINE NEGATIVE (NEGATIVE); NITRATE,URINE NEGATIVE (NEGATIVE); OCCULT BLOOD,URINE TRACE (NEGATIVE); PROTEIN,URINE TRACE mg/dL (NEGATIVE); SPECIFIC GRAVITIY, URINE 1.011 (1.003-1.030); UROBILINOGEN,URINE <=1.0 mg/dL (<=1.0)
[2023-01-04 14:59] LABS: SARS-COV2 (COVID) ANTIGEN,FIA Negative (Negative)
[2023-01-04 15:00] LABS: ALCOHOL, URINE DRUG SCREEN NEGATIVE (NEGATIVE); AMPHET/METH SCREEN,URINE POSITIVE (NEGATIVE); BARBITURATE SCREEN, URINE NEGATIVE (NEGATIVE); BENZODIAZEPINES SCREEN,URINE NEGATIVE (NEGATIVE); CANNABINOID SCREEN,URINE NEGATIVE (NEGATIVE); COCAINE SCREEN,URINE NEGATIVE (NEGATIVE); METHADONE SCREEN, URINE NEGATIVE (NEGATIVE); OPIATE SCREEN,URINE NEGATIVE (NEGATIVE); PHENCYCLIDINE SCREEN,URINE NEGATIVE (NEGATIVE)
[2023-01-04 15:09] LABS: INFLUENZA TYPE A NEGATIVE FOR TYPE A (NEGATIVE); INFLUENZA TYPE B NEGATIVE FOR TYPE B (NEGATIVE)
[2023-01-04 15:18] LABS: BACTERIA,URINE None Seen /HPF (None Seen); FINE GRANULAR CASTS,URINE 0-2 /LPF (None Seen); RBC,URINE 0-2 /HPF (0-2); SQUAMOUS EPITHELIAL CELL,UR Few /LPF (None Seen); WBC,URINE 0-2 /HPF (0-5)
[2023-01-04] MEDS ORDERED: LORazepam 2 MG/ML VIAL IM PRN (15:30)
[2023-01-04] MEDS: SODIUM CHLORIDE 0.9% 1,000 ML IV SCH (15:47)
[2023-01-04] MEDS: PANTOPRAZOLE SODIUM 40 MG/VIAL IVP SCH (15:48)
[2023-01-04] MEDS ORDERED: ALBUTEROL SULFATE 2.5 MG/0.5 ML NEB SOLUTION NEB ONE (16:30)
[2023-01-04] MEDS ORDERED: IPRATROPIUM BROMIDE 0.5 MG/2.5 ML NEB SOLUTION NEB ONE ×2 (16:30→17:00)
[2023-01-04] MEDS: MethylPREDNISolone SOD SUCC 125 MG/2 ML VIAL IVP SCH (16:34)
[2023-01-04] MEDS ORDERED: ALBUTEROL SULFATE 2.5 MG/0.5 ML 5 ML NEB SOLUTION NEB ONE (17:00)
[2023-01-04] MEDS ORDERED: ROCURONIUM BROMIDE 10 MG/ML 5 ML VIAL ONE (17:20)
[2023-01-04 18:32] LABS: TROPONIN I-HIGH SENSITIVITY 7323 ng/L (<51)
[2023-01-04] MEDS: PIPERACILLIN/TAZO 3.375 GM/D5W 50 ML IV SCH (19:12)
[2023-01-04] MEDS: PROPOFOL 1000 MG/ISO-OSM 100 ML IV PRN ×2 (20:00→22:43)
[2023-01-04 21:05] LABS: ABG CARBOXYHEMOGLOBIN 1.1 % (0.0-1.5); ABG HCO3 13.2 mmol/L (22.0-26.0); ABG METHEMOGLOBIN 0.3 % (0.0-1.5); ABG OXYGEN CONTENT 14.3 mL/dL (15.0-23.0); ABG OXYGEN SATURATION 92.4 % (95.0-98.0); ABG OXYHEMOGLOBIN 91.1 % (94.0-100.0); ABG PCO2 44 mmHg (35-45); ABG TOTAL HEMOGLOBIN 11.1 G/dL (12.0-18.0); PO2, ARTERIAL BG 77.6 mmHg (88.0-96.0); SOURCE, BLOOD GAS ARTERIAL; TEMPERATURE, FAHRENHEIT, BG 97.3 FAHREN (96.0-98.6)
[2023-01-04 21:08] LABS: ABG PH 7.127 (7.35-7.450); SITE, BLOOD GAS RT BRACHIAL
[2023-01-04 21:09] LABS: O2 DEVICE,BLOOD GAS VENTILATOR (ROOM AIR); PEEP,BG 5 cm H2O; VT, ABG 409 ml
[2023-01-04 21:41] LABS: GLUCOMETER DEV NAME(LOC) ICUN.5; GLUCOSE,POINT OF CARE 108 MG/DL (70-110)
[2023-01-04] MEDS ORDERED: SODIUM BICARBONATE [ADULT] 8.4% 50 MEQ/50 ML SYRINGE IVP ONE ×2 (22:11→22:13)
[2023-01-04] MEDS: ETHYL ALCOHOL 62% ANTISEPTIC NASAL SANITIZER 0.6 ML AMPUL NASAL SCH (22:43)
[2023-01-04 23:18] LABS: ABG BASE EXCESS -11.4 mmol/L (-2.0-3.0); ABG CARBOXYHEMOGLOBIN 0.9 % (0.0-1.5); ABG METHEMOGLOBIN 0.3 % (0.0-1.5); ABG OXYGEN CONTENT 13.4 mL/dL (15.0-23.0); ABG OXYGEN SATURATION 95.3 % (95.0-98.0); ABG OXYHEMOGLOBIN 94.2 % (94.0-100.0); ABG PCO2 34 mmHg (35-45); ABG PH 7.273 (7.35-7.450); PO2, ARTERIAL BG 80.2 mmHg (88.0-96.0); SOURCE, BLOOD GAS ARTERIAL; TEMPERATURE, FAHRENHEIT, BG 97.1 FAHREN (96.0-98.6)
[2023-01-04 23:19] LABS: SITE, BLOOD GAS RT RADIAL
[2023-01-04 23:20] LABS: O2 DEVICE,BLOOD GAS VENTILATOR (ROOM AIR); PEEP,BG 5 cm H2O; VT, ABG 400 ml
[2023-01-05] VITALS (14 sets, daily range): BP systolic 90–104; BP diastolic 55–64; PULSE 89–120; RESP 22–26; TEMP 98.2–98.7; O2SAT 93–97
[2023-01-05] MEDS: MethylPREDNISolone SOD SUCC 125 MG/2 ML VIAL IVP SCH ×4 (00:14→23:35)
[2023-01-05] MEDS: PIPERACILLIN/TAZO 3.375 GM/D5W 50 ML IV SCH ×2 (00:14→05:34)
[2023-01-05] MEDS: NOREPINEPHRINE 8 MG/0.9 % NACL 250 ML IV PRN (01:24)
[2023-01-05] MEDS: FentaNYL CIT 1000MCG/0.9% NACL 100 ML IV PRN (01:24)
[2023-01-05] MEDS: SODIUM CHLORIDE 0.9% 1,000 ML IV SCH ×3 (02:01→18:35)
[2023-01-05] MEDS: PROPOFOL 1000 MG/ISO-OSM 100 ML IV PRN ×3 (05:00→17:28)
[2023-01-05 06:03] LABS: BASOPHILS % (AUTO) 0.1 % (0.0-2.0); EOSINOPHILS % (AUTO) 0 % (1.0-6.0); HEMATOCRIT 29.1 % (36-46); HEMOGLOBIN 9.4 g/dL (12.0-16.0); LYMPHOCYTES # (AUTO) 0.5 K/uL (1.0-4.8); LYMPHOCYTES % (AUTO) 4.6 % (22.0-44.0); MEAN CORPUSCULAR HGB CONC 32.5 G/dL (31.0-37.0); MEAN CORPUSCULAR VOLUME 102 fL (80-100); MONOCYTES # (AUTO) 0.6 K/uL (0.1-1.0); MONOCYTES % (AUTO) 5.1 % (2.0-9.0); NEUTROPHILS # (AUTO) 10.1 K/uL (1.8-7.7); PLATELET COUNT (AUTO) 48 K/uL (150-450); RED BLOOD CELL COUNT(AUTO) 2.86 MIL/uL (4.00-5.20); RED CELL DISTRIBUTION WIDTH 24.5 % (11.5-14.5); WHITE BLOOD COUNT (AUTO) 11.2 K/uL (4.5-11.0)
[2023-01-05 06:06] LABS: NEUTROPHILS % (AUTO) 90.2 % (40.0-70.0)
[2023-01-05 06:09] LABS: BILIRUBIN,TOTAL 7.9 mg/dL (0.1-1.0); CREATININE 1.66 mg/dL (0.60-1.30); POTASSIUM 3.8 mmol/L (3.5-5.1); TOTAL PROTEIN, SERUM 8.2 g/dL (6.4-8.2)
[2023-01-05 06:21] LABS: RBC MORPHOLOGY COMMENT ABNORMAL RBC MORPH
[2023-01-05] MEDS: ETHYL ALCOHOL 62% ANTISEPTIC NASAL SANITIZER 0.6 ML AMPUL NASAL SCH ×2 (08:27→20:34)
[2023-01-05] MEDS: LACTULOSE 20 GM/30 ML SOLUTION UDCUP NG SCH ×2 (08:27→20:34)
[2023-01-05] MEDS: PANTOPRAZOLE SODIUM 40 MG/VIAL IVP SCH (08:27)
[2023-01-05 09:12] LABS: ABG BASE EXCESS -8.5 mmol/L (-2.0-3.0); ABG CARBOXYHEMOGLOBIN 0.8 % (0.0-1.5); ABG HCO3 18.4 mmol/L (22.0-26.0); ABG METHEMOGLOBIN 0.3 % (0.0-1.5); ABG OXYGEN CONTENT 13.8 mL/dL (15.0-23.0); ABG OXYGEN SATURATION 96.5 % (95.0-98.0); ABG OXYHEMOGLOBIN 95.4 % (94.0-100.0); ABG PCO2 27 mmHg (35-45); ABG PH 7.396 (7.35-7.450); ABG TOTAL HEMOGLOBIN 10.2 G/dL (12.0-18.0); SOURCE, BLOOD GAS ARTERIAL; TEMPERATURE, FAHRENHEIT, BG 98.3 FAHREN (96.0-98.6)
[2023-01-05 09:13] LABS: ALLEN TEST, BLOOD GAS Positive; O2 DEVICE,BLOOD GAS VENTILATOR (ROOM AIR); SITE, BLOOD GAS RT RADIAL
[2023-01-05 09:14] LABS: PEEP,BG 5 cm H2O; SPONTANEOUS VT, BG 411 ml; VT, ABG 400 ml
[2023-01-05] MEDS: PIPERACILLIN SODIUM/TAZOBACTAM 2.25 GM in DEXTROSE 5%-WATER 50 ML IV SCH ×2 (13:50→20:34)
[2023-01-05] MEDS: PHYTONADIONE 10 MG in SODIUM CHLORIDE 0.9% 50 ML IV SCH (15:01)
[2023-01-06] VITALS (14 sets, daily range): BP systolic 92–121; BP diastolic 62–79; PULSE 79–105; RESP 16–26; TEMP 96.4–97.6; O2SAT 94–98
[2023-01-06] MEDS: PIPERACILLIN SODIUM/TAZOBACTAM 2.25 GM in DEXTROSE 5%-WATER 50 ML IV SCH ×4 (01:14→20:26)
[2023-01-06] MEDS: SODIUM CHLORIDE 0.9% 1,000 ML IV SCH ×2 (02:41→08:23)
[2023-01-06] MEDS: FentaNYL CIT 1000MCG/0.9% NACL 100 ML IV PRN (02:42)
[2023-01-06] MEDS: PROPOFOL 1000 MG/ISO-OSM 100 ML IV PRN (02:43)
[2023-01-06] MEDS: NOREPINEPHRINE 8 MG/0.9 % NACL 250 ML IV PRN (05:58)
[2023-01-06 06:07] LABS: BASOPHILS % (AUTO) 0.1 % (0.0-2.0); EOSINOPHILS % (AUTO) 0 % (1.0-6.0); HEMATOCRIT 27.5 % (36-46); HEMOGLOBIN 8.9 g/dL (12.0-16.0); LYMPHOCYTES # (AUTO) 0.5 K/uL (1.0-4.8); LYMPHOCYTES % (AUTO) 4.2 % (22.0-44.0); MEAN CORPUSCULAR HEMOGLOBIN 32.8 pg (26.0-34.0); MEAN CORPUSCULAR HGB CONC 32.2 G/dL (31.0-37.0); MEAN CORPUSCULAR VOLUME 102 fL (80-100); MONOCYTES # (AUTO) 0.5 K/uL (0.1-1.0); MONOCYTES % (AUTO) 4.2 % (2.0-9.0); NEUTROPHILS # (AUTO) 11.2 K/uL (1.8-7.7); PLATELET COUNT (AUTO) 22 K/uL (150-450); RED CELL DISTRIBUTION WIDTH 24.6 % (11.5-14.5); WHITE BLOOD COUNT (AUTO) 12.2 K/uL (4.5-11.0)
[2023-01-06 06:21] LABS: ALBUMIN 1.9 g/dL (3.4-5.0); BILIRUBIN,TOTAL 5.4 mg/dL (0.1-1.0); CALCIUM, TOTAL 7.8 mg/dL (8.8-10.5); CREATININE 2.41 mg/dL (0.60-1.30); POTASSIUM 4.5 mmol/L (3.5-5.1); TOTAL PROTEIN, SERUM 8.2 g/dL (6.4-8.2)
[2023-01-06 06:57] LABS: NEUTROPHILS % (AUTO) 91.5 % (40.0-70.0)
[2023-01-06 06:58] LABS: RBC MORPHOLOGY COMMENT ABNORMAL RBC MORPH
[2023-01-06] MEDS: LACTULOSE 20 GM/30 ML SOLUTION UDCUP NG SCH ×2 (08:21→21:46)
[2023-01-06] MEDS: PANTOPRAZOLE SODIUM 40 MG/VIAL IVP SCH (08:21)
[2023-01-06] MEDS: MethylPREDNISolone SOD SUCC 125 MG/2 ML VIAL IVP SCH ×2 (08:22→15:54)
[2023-01-06 08:52] LABS: ABG CARBOXYHEMOGLOBIN 0.6 % (0.0-1.5); ABG HCO3 18.8 mmol/L (22.0-26.0); ABG METHEMOGLOBIN 0.3 % (0.0-1.5); ABG OXYGEN SATURATION 97.9 % (95.0-98.0); ABG PCO2 27 mmHg (35-45); ABG PH 7.406 (7.35-7.450); ABG TOTAL HEMOGLOBIN 10.1 G/dL (12.0-18.0); PO2, ARTERIAL BG 102.4 mmHg (88.0-96.0); SOURCE, BLOOD GAS ARTERIAL; TEMPERATURE, FAHRENHEIT, BG 96.4 FAHREN (96.0-98.6)
[2023-01-06 08:54] LABS: ABG A-A DIFF O2 224.8 mmHg (10-20.0); ALLEN TEST, BLOOD GAS Positive; O2 DEVICE,BLOOD GAS VENTILATOR (ROOM AIR); PEEP,BG 5 cm H2O; SITE, BLOOD GAS RT RADIAL; SPONTANEOUS VT, BG 411 ml; VT, ABG 400 ml
[2023-01-06] MEDS: ETHYL ALCOHOL 62% ANTISEPTIC NASAL SANITIZER 0.6 ML AMPUL NASAL SCH ×2 (09:42→21:34)
[2023-01-06 09:51] LABS: INR 1.7 (0.9-1.1); PROTHROMBIN TIME 17.2 SEC (9.4-11.6)
[2023-01-06] MEDS: OCTREOTIDE ACETATE 500 MCG in SODIUM CHLORIDE 0.9% 97.5 ML IV SCH ×2 (11:01→20:23)
[2023-01-06] MEDS: ALBUMIN HUMAN 25%-25GM/100ML 100 ML IV SCH ×2 (12:05→20:24)
[2023-01-06] MEDS: PHYTONADIONE 10 MG in SODIUM CHLORIDE 0.9% 50 ML IV SCH (14:59)
[2023-01-06] MEDS: MIDODRINE HCL 5 MG TABLET PO SCH ×2 (15:54→21:35)
[2023-01-06] MEDS: BUMETANIDE 0.25 MG/ML 4 ML VIAL IVP SCH ×2 (15:54→21:34)
[2023-01-07] VITALS (21 sets, daily range): BP systolic 91–112; BP diastolic 56–88; PULSE 71–84; RESP 11–24; TEMP 96.3–98.4; O2SAT 94–99
[2023-01-07] MEDS: MethylPREDNISolone SOD SUCC 125 MG/2 ML VIAL IVP SCH ×2 (00:36→08:26)
[2023-01-07] MEDS: PIPERACILLIN SODIUM/TAZOBACTAM 2.25 GM in DEXTROSE 5%-WATER 50 ML IV SCH ×2 (02:04→08:24)
[2023-01-07] MEDS: ALBUMIN HUMAN 25%-25GM/100ML 100 ML IV SCH ×3 (04:06→19:57)
[2023-01-07 06:39] LABS: BASOPHILS % (AUTO) 0.6 % (0.0-2.0); EOSINOPHILS % (AUTO) 0.1 % (1.0-6.0); HEMATOCRIT 23.8 % (36-46); HEMOGLOBIN 7.8 g/dL (12.0-16.0); LYMPHOCYTES # (AUTO) 0.2 K/uL (1.0-4.8); LYMPHOCYTES % (AUTO) 4.3 % (22.0-44.0); MEAN CORPUSCULAR HEMOGLOBIN 34.3 pg (26.0-34.0); MEAN CORPUSCULAR HGB CONC 32.9 G/dL (31.0-37.0); MEAN CORPUSCULAR VOLUME 104 fL (80-100); MONOCYTES # (AUTO) 0.3 K/uL (0.1-1.0); MONOCYTES % (AUTO) 4.9 % (2.0-9.0); NEUTROPHILS # (AUTO) 5.2 K/uL (1.8-7.7); RED BLOOD CELL COUNT(AUTO) 2.28 MIL/uL (4.00-5.20); RED CELL DISTRIBUTION WIDTH 25.2 % (11.5-14.5); WHITE BLOOD COUNT (AUTO) 5.8 K/uL (4.5-11.0)
[2023-01-07 06:42] LABS: INR 1.8 (0.9-1.1)
[2023-01-07 07:02] LABS: CALCIUM, TOTAL 7.7 mg/dL (8.8-10.5); CREATININE 3.09 mg/dL (0.60-1.30); POTASSIUM 4.5 mmol/L (3.5-5.1)
[2023-01-07] MEDS: OCTREOTIDE ACETATE 500 MCG in SODIUM CHLORIDE 0.9% 97.5 ML IV SCH ×2 (07:41→16:45)
[2023-01-07 07:54] LABS: NEUTROPHILS % (AUTO) 90.1 % (40.0-70.0)
[2023-01-07] MEDS: BUMETANIDE 0.25 MG/ML 4 ML VIAL IVP SCH ×3 (08:25→20:53)
[2023-01-07 08:51] LABS: PLATELET COUNT (AUTO) 53 K/uL (150-450)
[2023-01-07] MEDS ORDERED: *CLINICAL-LEVOFLOXACIN IVPB DOSING CLINICAL ONE (09:00)
[2023-01-07] MEDS: PANTOPRAZOLE SODIUM 40 MG/VIAL IVP SCH (09:08)
[2023-01-07] MEDS: LACTULOSE 20 GM/30 ML SOLUTION UDCUP NG SCH ×2 (09:10→20:53)
[2023-01-07] MEDS: ETHYL ALCOHOL 62% ANTISEPTIC NASAL SANITIZER 0.6 ML AMPUL NASAL SCH ×2 (09:31→20:53)
[2023-01-07] MEDS: MIDODRINE HCL 5 MG TABLET PO SCH ×3 (09:39→20:53)
[2023-01-07] MEDS: PHYTONADIONE 10 MG in SODIUM CHLORIDE 0.9% 50 ML IV SCH (15:08)
[2023-01-07] MEDS: LEVOFLOXACIN 750 MG/D5% WATER 150 ML IV SCH (16:45)
[2023-01-07] MEDS: MethylPREDNISolone SOD SUCC 40 MG/ML VIAL IVP SCH (20:53)
[2023-01-08] VITALS (17 sets, daily range): BP systolic 103–130; BP diastolic 70–85; PULSE 66–76; RESP 22–25; TEMP 96.4–98.5; O2SAT 94–100
[2023-01-08] MEDS: OCTREOTIDE ACETATE 500 MCG in SODIUM CHLORIDE 0.9% 97.5 ML IV SCH ×3 (01:57→22:59)
[2023-01-08] MEDS: ALBUMIN HUMAN 25%-25GM/100ML 100 ML IV SCH ×3 (04:07→20:33)
[2023-01-08 05:37] LABS: BASOPHILS % (AUTO) 0.1 % (0.0-2.0); EOSINOPHILS % (AUTO) 0 % (1.0-6.0); HEMATOCRIT 25.7 % (36-46); HEMOGLOBIN 8.6 g/dL (12.0-16.0); LYMPHOCYTES # (AUTO) 0.3 K/uL (1.0-4.8); LYMPHOCYTES % (AUTO) 6.1 % (22.0-44.0); MEAN CORPUSCULAR HEMOGLOBIN 33.8 pg (26.0-34.0); MEAN CORPUSCULAR HGB CONC 33.6 G/dL (31.0-37.0); MEAN CORPUSCULAR VOLUME 101 fL (80-100); MONOCYTES # (AUTO) 0.2 K/uL (0.1-1.0); MONOCYTES % (AUTO) 5.4 % (2.0-9.0); NEUTROPHILS # (AUTO) 3.9 K/uL (1.8-7.7); RED BLOOD CELL COUNT(AUTO) 2.55 MIL/uL (4.00-5.20); RED CELL DISTRIBUTION WIDTH 24.5 % (11.5-14.5); WHITE BLOOD COUNT (AUTO) 4.5 K/uL (4.5-11.0)
[2023-01-08 05:40] LABS: PROTHROMBIN TIME 19.8 SEC (9.4-11.6)
[2023-01-08 05:45] LABS: CALCIUM, TOTAL 8.4 mg/dL (8.8-10.5); CREATININE 3.1 mg/dL (0.60-1.30); POTASSIUM 3.7 mmol/L (3.5-5.1)
[2023-01-08] MEDS ORDERED: DEXMEDETOMIDINE HCL 400 MCG in SODIUM CHLORIDE 0.9% 96 ML IV PRN (08:00)
[2023-01-08 08:01] LABS: NEUTROPHILS % (AUTO) 88.4 % (40.0-70.0)
[2023-01-08 08:09] LABS: PLATELET COUNT (AUTO) 43 K/uL (150-450)
[2023-01-08] MEDS: LACTULOSE 20 GM/30 ML SOLUTION UDCUP NG SCH ×2 (08:59→20:33)
[2023-01-08] MEDS: ETHYL ALCOHOL 62% ANTISEPTIC NASAL SANITIZER 0.6 ML AMPUL NASAL SCH ×2 (08:59→20:33)
[2023-01-08] MEDS: BUMETANIDE 0.25 MG/ML 4 ML VIAL IVP SCH (08:59)
[2023-01-08] MEDS: PANTOPRAZOLE SODIUM 40 MG/VIAL IVP SCH (08:59)
[2023-01-08] MEDS: MethylPREDNISolone SOD SUCC 40 MG/ML VIAL IVP SCH ×2 (09:00→20:33)
[2023-01-08] MEDS: MIDODRINE HCL 5 MG TABLET PO SCH ×3 (09:01→20:34)
[2023-01-08] MEDS ORDERED: PHYTONADIONE 5 MG in SODIUM CHLORIDE 0.9% 50 ML IV ONE (11:00)
[2023-01-09] VITALS (7 sets, daily range): BP systolic 120–138; BP diastolic 71–92; PULSE 65–72; RESP 12–28; TEMP 96.8–98.9; O2SAT 96
[2023-01-09] MEDS: ALBUMIN HUMAN 25%-25GM/100ML 100 ML IV SCH (05:17)
[2023-01-09] MEDS ORDERED: PHYTONADIONE 10 MG/ML VIAL SQ ONE (08:00)
[2023-01-09] MEDS: LACTULOSE 20 GM/30 ML SOLUTION UDCUP NG SCH ×2 (08:02→20:12)
[2023-01-09] MEDS: PANTOPRAZOLE SODIUM 40 MG/VIAL IVP SCH (08:02)
[2023-01-09] MEDS: ETHYL ALCOHOL 62% ANTISEPTIC NASAL SANITIZER 0.6 ML AMPUL NASAL SCH ×2 (08:02→20:12)
[2023-01-09] MEDS: MethylPREDNISolone SOD SUCC 40 MG/ML VIAL IVP SCH (08:03)
[2023-01-09] MEDS: MIDODRINE HCL 5 MG TABLET PO SCH ×4 (08:04→20:12)
[2023-01-09 11:33] LABS: BASOPHILS % (AUTO) 0.4 % (0.0-2.0); EOSINOPHILS % (AUTO) 0.2 % (1.0-6.0); HEMATOCRIT 28.1 % (36-46); HEMOGLOBIN 9.3 g/dL (12.0-16.0); LYMPHOCYTES # (AUTO) 0.3 K/uL (1.0-4.8); LYMPHOCYTES % (AUTO) 9.4 % (22.0-44.0); MEAN CORPUSCULAR HEMOGLOBIN 33.7 pg (26.0-34.0); MEAN CORPUSCULAR VOLUME 102 fL (80-100); MONOCYTES # (AUTO) 0.2 K/uL (0.1-1.0); MONOCYTES % (AUTO) 7.5 % (2.0-9.0); NEUTROPHILS # (AUTO) 2.7 K/uL (1.8-7.7); NEUTROPHILS % (AUTO) 82.5 % (40.0-70.0); RED BLOOD CELL COUNT(AUTO) 2.75 MIL/uL (4.00-5.20); RED CELL DISTRIBUTION WIDTH 24.6 % (11.5-14.5); WHITE BLOOD COUNT (AUTO) 3.3 K/uL (4.5-11.0)
[2023-01-09 11:36] LABS: CALCIUM, TOTAL 8.8 mg/dL (8.8-10.5); CREATININE 2.93 mg/dL (0.60-1.30); INR 1.9 (0.9-1.1); POTASSIUM 3.1 mmol/L (3.5-5.1)
[2023-01-09 11:44] LABS: RBC MORPHOLOGY COMMENT ABNORMAL RBC MORPH
[2023-01-09] MEDS: POTASSIUM CHL 10 MEQ/WATER 50 ML IV SCH ×4 (13:00→18:29)
[2023-01-09 14:21] LABS: PLATELET COUNT (AUTO) 39 K/uL (150-450)
[2023-01-09] MEDS ORDERED: SODIUM CHLORIDE 0.9% 250 ML IV ONE ×2 (14:54→16:11)
[2023-01-09] MEDS: LEVOFLOXACIN 750 MG/D5% WATER 150 ML IV SCH (17:22)
[2023-01-09 17:55] LABS: SPECIMENTYPE,BODY FLUID PARACENTESIS
[2023-01-09 18:17] LABS: APPEARANCE,SPUN,BODY FLUID CLEAR (CLEAR); APPEARANCE,UNSPUN,BODY FLUID HAZY (CLEAR); COLOR,BODY FLUID YELLOW (LT YELLOW); EOSINOPHILS,BF (ANAL) 0 %; LYMPHOCYTES,BODY FLUID 23 %; MONOCYTES,BODY FLUID 5 %; NEUTROPHILS,BODY FLUID 52 %; TOTAL VOLUME,BODY FLUID 1200 mL; WBC, BODY FLUID 77 /cu. mm.
[2023-01-09 18:18] LABS: BASOPHILS,BODY FLUID 0 %; OTHER CELLS,BODY FLUID 20
[2023-01-09 18:20] LABS: PH, BODY FLUID 7
[2023-01-10] VITALS: BP 119/72; PULSE 73; RESP 16; TEMP 97.8
[2023-01-10 04:00] VITALS: BP 121/75; PULSE 67; RESP 11; TEMP 97.4
[2023-01-10 06:18] LABS: CALCIUM, TOTAL 8.8 mg/dL (8.8-10.5); CREATININE 2.56 mg/dL (0.60-1.30); POTASSIUM 3.3 mmol/L (3.5-5.1)
[2023-01-10] MEDS ORDERED: POTASSIUM CHLORIDE 10% 40 MEQ/30 ML LIQUID UDCUP PO ONE (07:45)
[2023-01-10] MEDS ORDERED: DEXTROSE 5%-WATER 500 ML IV ONE (07:45)
[2023-01-10 08:00] VITALS: BP 134/58; PULSE 70; RESP 13; TEMP 97.5
[2023-01-10] MEDS: PANTOPRAZOLE SODIUM 40 MG/VIAL IVP SCH (08:38)
[2023-01-10] MEDS: ETHYL ALCOHOL 62% ANTISEPTIC NASAL SANITIZER 0.6 ML AMPUL NASAL SCH ×2 (08:38→20:55)
[2023-01-10] MEDS: MIDODRINE HCL 5 MG TABLET PO SCH ×3 (08:39→20:57)
[2023-01-10] MEDS: LACTULOSE 20 GM/30 ML SOLUTION UDCUP NG SCH ×2 (08:42→20:56)
[2023-01-10] MEDS ORDERED: MethylPREDNISolone SOD SUCC 40 MG/ML VIAL IVP SCH (09:00)
[2023-01-10 09:43] LABS: BASOPHILS % (AUTO) 0.3 % (0.0-2.0); EOSINOPHILS % (AUTO) 0 % (1.0-6.0); HEMOGLOBIN 9.2 g/dL (12.0-16.0); LYMPHOCYTES # (AUTO) 0.2 K/uL (1.0-4.8); LYMPHOCYTES % (AUTO) 4.8 % (22.0-44.0); MEAN CORPUSCULAR HEMOGLOBIN 32.9 pg (26.0-34.0); MEAN CORPUSCULAR HGB CONC 32.9 G/dL (31.0-37.0); MEAN CORPUSCULAR VOLUME 100 fL (80-100); MONOCYTES # (AUTO) 0.5 K/uL (0.1-1.0); MONOCYTES % (AUTO) 9.4 % (2.0-9.0); NEUTROPHILS # (AUTO) 4.3 K/uL (1.8-7.7); RED CELL DISTRIBUTION WIDTH 23.7 % (11.5-14.5)
[2023-01-10] MEDS ORDERED: BREXPIPRAZOLE 1 MG TABLET PO PRN (09:45)
[2023-01-10 09:46] LABS: NEUTROPHILS % (AUTO) 85.5 % (40.0-70.0)
[2023-01-10 09:58] LABS: PROTHROMBIN TIME 19.8 SEC (9.4-11.6)
[2023-01-10 10:09] LABS: PLATELET COUNT (AUTO) 47 K/uL (150-450)
[2023-01-10 12:00] VITALS: BP 145/92; PULSE 71; RESP 15; TEMP 97.6
[2023-01-10] MEDS ORDERED: SODIUM CHLORIDE 0.9% 250 ML IV ONE (13:58)
[2023-01-10 16:00] VITALS: BP 131/78; PULSE 81; RESP 19; TEMP 97.6
[2023-01-10 20:00] VITALS: BP 130/79; PULSE 68; RESP 14; TEMP 97.6
[2023-01-10] MEDS: BREXPIPRAZOLE 1 MG TABLET PO SCH (20:56)
[2023-01-11] VITALS (8 sets, daily range): BP systolic 133–154; BP diastolic 73–97; PULSE 56–69; RESP 10–19; TEMP 97.5–98.5
[2023-01-11 05:48] LABS: CALCIUM, TOTAL 7.9 mg/dL (8.8-10.5); CREATININE 1.98 mg/dL (0.60-1.30); MAGNESIUM 2.4 mg/dL (1.80-2.40); POTASSIUM 3.7 mmol/L (3.5-5.1)
[2023-01-11] MEDS: PANTOPRAZOLE SODIUM 40 MG/VIAL IVP SCH (08:52)
[2023-01-11] MEDS: ETHYL ALCOHOL 62% ANTISEPTIC NASAL SANITIZER 0.6 ML AMPUL NASAL SCH ×2 (08:53→21:04)
[2023-01-11] MEDS: MIDODRINE HCL 5 MG TABLET PO SCH ×2 (08:53→21:04)
[2023-01-11] MEDS: LACTULOSE 20 GM/30 ML SOLUTION UDCUP NG SCH (08:54)
[2023-01-11] MEDS ORDERED: MethylPREDNISolone SOD SUCC 40 MG/ML VIAL IVP SCH (09:00)
[2023-01-11] MEDS: PredniSONE 20 MG TABLET PO SCH (10:31)
[2023-01-11] MEDS: LEVOFLOXACIN 750 MG/D5% WATER 150 ML IV SCH (15:34)
[2023-01-11] MEDS: BREXPIPRAZOLE 1 MG TABLET PO SCH (21:05)
[2023-01-12 04:45] VITALS: BP 136/91; PULSE 64; RESP 18; TEMP 97.8
[2023-01-12 07:14] VITALS: BP 145/95; PULSE 83; RESP 18; TEMP 98
[2023-01-12 07:14] LABS: ALBUMIN 2.8 g/dL (3.4-5.0); BILIRUBIN,TOTAL 4.5 mg/dL (0.1-1.0); CALCIUM, TOTAL 8.5 mg/dL (8.8-10.5); CREATININE 1.57 mg/dL (0.60-1.30); MAGNESIUM 2.5 mg/dL (1.80-2.40); PHOSPHORUS 3.6 mg/dL (2.5-4.9); POTASSIUM 4.8 mmol/L (3.5-5.1); TOTAL PROTEIN, SERUM 7.2 g/dL (6.4-8.2)
[2023-01-12] MEDS: LACTULOSE 20 GM/30 ML SOLUTION UDCUP NG SCH (09:00)
[2023-01-12] MEDS: ETHYL ALCOHOL 62% ANTISEPTIC NASAL SANITIZER 0.6 ML AMPUL NASAL SCH ×2 (09:31→22:22)
[2023-01-12] MEDS: MIDODRINE HCL 5 MG TABLET PO SCH (09:31)
[2023-01-12] MEDS: PANTOPRAZOLE SODIUM 40 MG/VIAL IVP SCH (09:31)
[2023-01-12] MEDS: PredniSONE 20 MG TABLET PO SCH (09:31)
[2023-01-12 11:36] VITALS: BP 155/90; PULSE 82; RESP 18; TEMP 98
[2023-01-12 14:37] VITALS: BP 144/96; PULSE 85; RESP 20; TEMP 98.2
[2023-01-12 15:51] VITALS: BP 138/92; PULSE 80; RESP 18; TEMP 98
[2023-01-12] MEDS ORDERED: FentaNYL CITRATE PF 100 MCG/2 ML VIAL ONE (16:31)
[2023-01-12] MEDS ORDERED: MIDAZOLAM HCL 2 MG/2 ML VIAL ONE (16:32)
[2023-01-12 19:57] VITALS: BP 115/66; PULSE 58; RESP 19; TEMP 97.6
[2023-01-12] MEDS: BREXPIPRAZOLE 1 MG TABLET PO SCH (22:24)
[2023-01-13 00:05] VITALS: BP 105/64; PULSE 60; RESP 19; TEMP 97.7
[2023-01-13 05:44] VITALS: BP 110/64; PULSE 63; RESP 20; TEMP 98
[2023-01-13 08:12] VITALS: BP 110/60; PULSE 67; RESP 20; TEMP 98.7
[2023-01-13 08:14] LABS: BASOPHILS % (AUTO) 0.1 % (0.0-2.0); EOSINOPHILS % (AUTO) 0 % (1.0-6.0); HEMATOCRIT 35.3 % (36-46); HEMOGLOBIN 11.6 g/dL (12.0-16.0); LYMPHOCYTES # (AUTO) 0.5 K/uL (1.0-4.8); LYMPHOCYTES % (AUTO) 6.2 % (22.0-44.0); MEAN CORPUSCULAR HEMOGLOBIN 32.8 pg (26.0-34.0); MEAN CORPUSCULAR VOLUME 99 fL (80-100); MONOCYTES # (AUTO) 0.8 K/uL (0.1-1.0); MONOCYTES % (AUTO) 10.5 % (2.0-9.0); NEUTROPHILS # (AUTO) 6.5 K/uL (1.8-7.7); NEUTROPHILS % (AUTO) 83.2 % (40.0-70.0); RED BLOOD CELL COUNT(AUTO) 3.55 MIL/uL (4.00-5.20); RED CELL DISTRIBUTION WIDTH 22.5 % (11.5-14.5); WHITE BLOOD COUNT (AUTO) 7.8 K/uL (4.5-11.0)
[2023-01-13 08:30] LABS: INR 1.8 (0.9-1.1); PROTHROMBIN TIME 18.1 SEC (9.4-11.6)
[2023-01-13 08:34] LABS: PLATELET COUNT (AUTO) 30 K/uL (150-450)
[2023-01-13 08:40] LABS: CALCIUM, TOTAL 8.8 mg/dL (8.8-10.5); CREATININE 1.24 mg/dL (0.60-1.30); MAGNESIUM 2.4 mg/dL (1.80-2.40); PHOSPHORUS 3.4 mg/dL (2.5-4.9); POTASSIUM 4.8 mmol/L (3.5-5.1)
[2023-01-13] MEDS: LACTULOSE 20 GM/30 ML SOLUTION UDCUP NG SCH (09:00)
[2023-01-13] MEDS: MIDODRINE HCL 5 MG TABLET PO SCH (09:58)
[2023-01-13] MEDS: ETHYL ALCOHOL 62% ANTISEPTIC NASAL SANITIZER 0.6 ML AMPUL NASAL SCH ×2 (09:58→20:32)
[2023-01-13] MEDS: PredniSONE 20 MG TABLET PO SCH (09:58)
[2023-01-13] MEDS: PANTOPRAZOLE SODIUM 40 MG/VIAL IVP SCH (09:59)
[2023-01-13] MEDS: PHYTONADIONE 10 MG/ML VIAL SQ SCH (09:59)
[2023-01-13 12:30] VITALS: BP 136/84; PULSE 71; RESP 20; TEMP 97.6
[2023-01-13] MEDS: LEVOFLOXACIN 750 MG/D5% WATER 150 ML IV SCH (12:34)
[2023-01-13 16:01] VITALS: BP 132/74; PULSE 73; RESP 20; TEMP 97.7
[2023-01-13 20:00] VITALS: BP 106/42; PULSE 75; RESP 18; TEMP 98.3
[2023-01-13] MEDS: BREXPIPRAZOLE 1 MG TABLET PO SCH (20:32)
[2023-01-14] VITALS (8 sets, daily range): BP systolic 90–115; BP diastolic 42–68; PULSE 65–76; RESP 18–20; TEMP 98–98.4
[2023-01-14 07:16] LABS: INR 1.7 (0.9-1.1)
[2023-01-14 07:18] LABS: BASOPHILS % (AUTO) 0.2 % (0.0-2.0); EOSINOPHILS % (AUTO) 0.7 % (1.0-6.0); HEMATOCRIT 34.9 % (36-46); HEMOGLOBIN 11.7 g/dL (12.0-16.0); LYMPHOCYTES # (AUTO) 0.8 K/uL (1.0-4.8); MEAN CORPUSCULAR HEMOGLOBIN 32.9 pg (26.0-34.0); MEAN CORPUSCULAR HGB CONC 33.4 G/dL (31.0-37.0); MEAN CORPUSCULAR VOLUME 98 fL (80-100); MONOCYTES # (AUTO) 0.9 K/uL (0.1-1.0); MONOCYTES % (AUTO) 10.8 % (2.0-9.0); NEUTROPHILS # (AUTO) 6.9 K/uL (1.8-7.7); NEUTROPHILS % (AUTO) 79.3 % (40.0-70.0); PLATELET COUNT (AUTO) 47 K/uL (150-450); RED BLOOD CELL COUNT(AUTO) 3.54 MIL/uL (4.00-5.20); RED CELL DISTRIBUTION WIDTH 21.7 % (11.5-14.5); WHITE BLOOD COUNT (AUTO) 8.7 K/uL (4.5-11.0)
[2023-01-14 07:26] LABS: CALCIUM, TOTAL 9.3 mg/dL (8.8-10.5); CREATININE 1.17 mg/dL (0.60-1.30); POTASSIUM 4.7 mmol/L (3.5-5.1)
[2023-01-14] MEDS: ETHYL ALCOHOL 62% ANTISEPTIC NASAL SANITIZER 0.6 ML AMPUL NASAL SCH ×2 (08:46→21:27)
[2023-01-14] MEDS: PHYTONADIONE 10 MG/ML VIAL SQ SCH (08:46)
[2023-01-14] MEDS: PredniSONE 20 MG TABLET PO SCH (08:46)
[2023-01-14] MEDS: PANTOPRAZOLE SODIUM 40 MG/VIAL IVP SCH (08:46)
[2023-01-14] MEDS: MIDODRINE HCL 5 MG TABLET PO SCH (08:46)
[2023-01-14] MEDS: LACTULOSE 20 GM/30 ML SOLUTION UDCUP NG SCH (08:47)
[2023-01-14] MEDS ORDERED: SODIUM CHLORIDE 0.9% 250 ML IV ONE (10:13)
[2023-01-14] MEDS: LEVOFLOXACIN 750 MG/D5% WATER 150 ML IV SCH (10:26)
[2023-01-14] MEDS: BREXPIPRAZOLE 1 MG TABLET PO SCH (21:29)
[2023-01-15 04:00] VITALS: PULSE 63
[2023-01-15 06:28] VITALS: BP 116/57; PULSE 76; RESP 20; TEMP 98.1
[2023-01-15 07:24] LABS: INR 1.6 (0.9-1.1); PROTHROMBIN TIME 16.4 SEC (9.4-11.6)
[2023-01-15 07:34] LABS: CALCIUM, TOTAL 9.1 mg/dL (8.8-10.5); CREATININE 1.09 mg/dL (0.60-1.30); POTASSIUM 4.6 mmol/L (3.5-5.1)
[2023-01-15 07:35] LABS: BASOPHILS % (AUTO) 0.2 % (0.0-2.0); EOSINOPHILS % (AUTO) 1.1 % (1.0-6.0); HEMATOCRIT 31.1 % (36-46); HEMOGLOBIN 10.6 g/dL (12.0-16.0); LYMPHOCYTES # (AUTO) 1.1 K/uL (1.0-4.8); LYMPHOCYTES % (AUTO) 12.7 % (22.0-44.0); MEAN CORPUSCULAR HEMOGLOBIN 33.2 pg (26.0-34.0); MEAN CORPUSCULAR HGB CONC 34.2 G/dL (31.0-37.0); MEAN CORPUSCULAR VOLUME 97 fL (80-100); MONOCYTES % (AUTO) 12.5 % (2.0-9.0); NEUTROPHILS # (AUTO) 6.1 K/uL (1.8-7.7); NEUTROPHILS % (AUTO) 73.5 % (40.0-70.0); RED CELL DISTRIBUTION WIDTH 21.7 % (11.5-14.5); WHITE BLOOD COUNT (AUTO) 8.3 K/uL (4.5-11.0)
[2023-01-15 07:46] LABS: TROPONIN I-HIGH SENSITIVITY 94 ng/L (<51)
[2023-01-15 07:50] VITALS: BP 113/48; PULSE 78; RESP 19; TEMP 97.6
[2023-01-15] MEDS: LACTULOSE 20 GM/30 ML SOLUTION UDCUP NG SCH (08:13)
[2023-01-15] MEDS: PANTOPRAZOLE SODIUM 40 MG/VIAL IVP SCH (08:13)
[2023-01-15] MEDS: MIDODRINE HCL 5 MG TABLET PO SCH (08:14)
[2023-01-15] MEDS: PHYTONADIONE 10 MG/ML VIAL SQ SCH (08:14)
[2023-01-15] MEDS: PredniSONE 20 MG TABLET PO SCH (08:14)
[2023-01-15] MEDS: ALBUMIN HUMAN 25%-50GM/200ML 200 ML IV SCH ×3 (08:17→23:51)
[2023-01-15] MEDS: ETHYL ALCOHOL 62% ANTISEPTIC NASAL SANITIZER 0.6 ML AMPUL NASAL SCH ×2 (08:18→21:10)
[2023-01-15] MEDS: LEVOFLOXACIN 750 MG/D5% WATER 150 ML IV SCH (11:09)
[2023-01-15 11:11] LABS: PLATELET COUNT (AUTO) 36 K/uL (150-450)
[2023-01-15 11:36] VITALS: BP 102/32; PULSE 82; RESP 18; TEMP 98.3
[2023-01-15 15:46] VITALS: BP 126/66; PULSE 80; RESP 18; TEMP 97.6
[2023-01-15 19:22] VITALS: BP 109/57; PULSE 83; RESP 19; TEMP 98.5
[2023-01-15] MEDS: BREXPIPRAZOLE 1 MG TABLET PO SCH (21:12)
[2023-01-16 00:10] VITALS: BP 101/60; PULSE 82; RESP 18; TEMP 98
[2023-01-16 03:59] VITALS: BP 134/78; PULSE 92; RESP 18; TEMP 98.1
[2023-01-16 07:28] VITALS: BP 127/72; PULSE 90; RESP 19; TEMP 98.1
[2023-01-16] MEDS: MIDODRINE HCL 5 MG TABLET PO SCH (09:15)
[2023-01-16] MEDS: PHYTONADIONE 10 MG/ML VIAL SQ SCH (09:15)
[2023-01-16] MEDS: PANTOPRAZOLE SODIUM 40 MG/VIAL IVP SCH (09:15)
[2023-01-16] MEDS: ETHYL ALCOHOL 62% ANTISEPTIC NASAL SANITIZER 0.6 ML AMPUL NASAL SCH ×2 (09:15→21:05)
[2023-01-16] MEDS: LACTULOSE 20 GM/30 ML SOLUTION UDCUP PO SCH (10:18)
[2023-01-16 11:23] VITALS: BP 117/70; PULSE 95; RESP 19; TEMP 98.2
[2023-01-16] MEDS ORDERED: BREX0.5T PO ×2 (11:33→11:34)
[2023-01-16] MEDS ORDERED: LACT10SO10 PO (11:34)
[2023-01-16] MEDS ORDERED: LEVO750P7 IV (11:36)
[2023-01-16] MEDS ORDERED: PANT-31 PO (11:36)
[2023-01-16] MEDS: LEVOFLOXACIN 750 MG/D5% WATER 150 ML IV SCH (11:45)
[2023-01-16 15:50] VITALS: BP 122/69; PULSE 89; RESP 18; TEMP 98.4
[2023-01-16 20:12] VITALS: BP 108/82; PULSE 82; RESP 19; TEMP 98.2
[2023-01-16] MEDS: BREXPIPRAZOLE 1 MG TABLET PO SCH (21:05)
[2023-01-17 00:11] VITALS: BP 137/86; PULSE 88; RESP 19; TEMP 98.2
[2023-01-17 04:43] VITALS: BP 119/75; PULSE 59; RESP 18; TEMP 97.6
[2023-01-17 07:20] VITALS: BP 129/68; PULSE 72; RESP 20; TEMP 97.9
[2023-01-17] MEDS: PHYTONADIONE 10 MG/ML VIAL SQ SCH (07:43)
[2023-01-17] MEDS: LACTULOSE 20 GM/30 ML SOLUTION UDCUP PO SCH (07:43)
[2023-01-17] MEDS: MIDODRINE HCL 5 MG TABLET PO SCH (07:43)
[2023-01-17] MEDS: ETHYL ALCOHOL 62% ANTISEPTIC NASAL SANITIZER 0.6 ML AMPUL NASAL SCH (07:43)
[2023-01-17] MEDS: PANTOPRAZOLE SODIUM 40 MG/VIAL IVP SCH (07:43)
[2023-01-17] MEDS ORDERED: LACTULOSE 20 GM/30 ML SOLUTION UDCUP PO SCH (09:00)
[2023-01-17 10:00] VITALS: BP 110/68; PULSE 87; RESP 18; TEMP 98
[2023-01-17 18:07] LABS: TOTAL PROTEIN,BODY FLUID,REF 2.2 g/dL
== END 2023-01-17 10:20 | DRG 720 ==
LOC: EMS 11:43 → ICU 16:57 → 5S 01-11 15:15
PROVIDERS: ADMIT Internal Medicine; ATTEND Internal Medicine
PROC: 5A1955Z Respiratory Ventilation, Greater than 96 Consecutive Hours (ICD-10-PCS; principal; 2023-01-04)
PROC: 0BH17EZ Insertion of Endotracheal Airway into Trachea, Via Natural or Artificial Opening (ICD-10-PCS; 2023-01-04)
PROC: 05H933Z Insertion of Infusion Device into Right Brachial Vein, Percutaneous Approach (ICD-10-PCS; 2023-01-05)
PROC: B54MZZA Ultrasonography of Right Upper Extremity Veins, Guidance (ICD-10-PCS; 2023-01-05)
PROC: 0W9G3ZZ Drainage of Peritoneal Cavity, Percutaneous Approach (ICD-10-PCS; 2023-01-09)
PROC: 0W9G3ZZ Drainage of Peritoneal Cavity, Percutaneous Approach (ICD-10-PCS; 2023-01-13)
DX: A41.9 Sepsis, unspecified organism (principal); J96.01 Acute respiratory failure with hypoxia; K76.7 Hepatorenal syndrome; G92.8 Other toxic encephalopathy; I21.4 Non-ST elevation (NSTEMI) myocardial infarction; E87.1 Hypo-osmolality and hyponatremia; D69.6 Thrombocytopenia, unspecified; I50.33 Acute on chronic diastolic (congestive) heart failure; D68.4 Acquired coagulation factor deficiency; E87.20 Acidosis, unspecified; N17.9 Acute kidney failure, unspecified; F15.10 Other stimulant abuse, uncomplicated; Z91.199 Patient's noncompliance with other medical treatment and regimen due to unspecified reason; F20.9 Schizophrenia, unspecified; B19.20 Unspecified viral hepatitis C without hepatic coma; K70.31 Alcoholic cirrhosis of liver with ascites; E87.70 Fluid overload, unspecified; E87.6 Hypokalemia; I13.0 Hypertensive heart and chronic kidney disease with heart failure and stage 1 through stage 4 chronic kidney disease, or unspecified chronic kidney disease; Z20.822 Contact with and (suspected) exposure to COVID-19; I08.1 Rheumatic disorders of both mitral and tricuspid valves; F41.9 Anxiety disorder, unspecified; F10.10 Alcohol abuse, uncomplicated; F17.210 Nicotine dependence, cigarettes, uncomplicated; K76.82 Hepatic encephalopathy; F31.9 Bipolar disorder, unspecified; N18.9 Chronic kidney disease, unspecified; R62.7 Adult failure to thrive; M16.0 Bilateral primary osteoarthritis of hip; I25.2 Old myocardial infarction; Z78.1 Physical restraint status; Z59.00 Homelessness unspecified; Z79.899 Other long term (current) drug therapy; Z99.11 Dependence on respirator [ventilator] status; Z68.25 Body mass index [BMI] 25.0-25.9, adult
CPT/HCPCS: 36245; 36569; 36600; 49083; 51702; 71045; 74018; 76705; 76937; 76942; 80048; 80053; 80307; 81001; 82140; 82465; 82550; 82805; 82945; 82962; 83605; 83615; 83735; 83880; 83986; 84100; 84157; 84484; 85025; 85610; 85730; 87015; 87040; 87070; 87075; 87081; 87101; 87205; 87206; 87804; 88108; 89051; 92507; 92526; 92610; 93005; 93306; 93970; 94002; 94003; 94640; 94644; 97110; 97116; 97163; 97530; 99291; C9113; G0480; J1956; J2060; J2250; J2354; J2543; J2704; J2920; J2930; J3010; J3430; J3480; J3490; J7030; J7050; J7060; P9046; Q9967; 36415-L1; 36415-TC; 82803-TC; J7613